=== PATIENT | female | born 1985 | race Hispanic/Latino ===

== ENCOUNTER 2017-02-08 20:41 | Emergency (ER) | payer MEDICAID, OTHER ==
[2017-02-08] MEDS ORDERED: ACETAMINOPHEN EXTRA STRENGTH 500 MG TABLET ONE (20:55)
[2017-02-08] MEDS ORDERED: OSELTAMIVIR PHOSPHATE 75 MG CAP ONE (22:14)
== END 2017-02-08 23:38 | disposition home or self-care (01) ==
LOC: EDH 20:41
DX: O99.513 Diseases of the respiratory system complicating pregnancy, third trimester (principal); O26.893 Other specified pregnancy related conditions, third trimester; J09.X2 Influenza due to identified novel influenza A virus with other respiratory manifestations; R10.9 Unspecified abdominal pain; Z3A.32 32 weeks gestation of pregnancy; Z88.8 Allergy status to other drugs, medicaments and biological substances; Z98.890 Other specified postprocedural states; Z86.711 Personal history of pulmonary embolism; Z86.718 Personal history of other venous thrombosis and embolism
CPT/HCPCS: 76805; 87804; 87880; 96360

== ENCOUNTER 2017-02-28 18:49 | Observation (INO) | payer MEDICAID, OTHER ==
[~2017-02-28] VITALS: Ht 165.1 cm; Wt 100.7 kg
[2017-02-28] MEDS ORDERED: ONDANSETRON HCL 4 MG/2 ML VIAL IVP PRN (19:30)
[2017-02-28] MEDS: LACTATED RINGERS 1000ML 1,000 ML IV SCH ×2 (19:42→19:44)
[2017-02-28 22:42] LABS: APPEARANCE,URINE Clear (CLEAR); BILIRUBIN,URINE Negative (NEGATIVE); COLOR,URINE Yellow (YELLOW); GLUCOSE, URINE (UA) Negative (NEGATIVE); KETONES,URINE >=80 mg/dL (NEGATIVE); LEUKOCYTE ESTERASE ,URINE Moderate (NEGATIVE); NITRATE,URINE Negative (NEGATIVE); OCCULT BLOOD,URINE Negative (NEGATIVE); PH,URINE 6.5 (5.0-8.0); PROTEIN,URINE Negative (NEGATIVE)
[2017-02-28 23:10] LABS: RBC,URINE None Seen /HPF (0-1)
[2017-02-28 23:11] LABS: BACTERIA,URINE Moderate /HPF (None Seen); SQUAMOUS EPITHELIAL CELL,UR Moderate /LPF (0-2)
== END 2017-03-01 00:25 | disposition home or self-care (01) ==
LOC: EDH 18:49 → LDH 19:01
DX: O21.2 Late vomiting of pregnancy (principal); O26.893 Other specified pregnancy related conditions, third trimester; R10.9 Unspecified abdominal pain; R19.7 Diarrhea, unspecified; Z3A.35 35 weeks gestation of pregnancy
CPT/HCPCS: 81001; 87046; 87177; 96361 ×2; 96374; 99285; G0378 ×5; J2405; 96360

== ENCOUNTER 2017-03-27 06:57 | Inpatient (IN) | payer MEDICAID ==
[2017-03-27] MEDS ORDERED: LACTATED RINGERS 1000ML 1,000 ML IV PRN (07:08)
[2017-03-27] MEDS ORDERED: OXYTOCIN 10 USP UNITS/ML 20 UNIT in LACTATED RINGERS 1000ML 1,000 ML IV SCH (07:15)
[2017-03-27] MEDS ORDERED: BUTORPHANOL TARTRATE 2 MG/ML IVP PRN (07:15)
[2017-03-27] MEDS ORDERED: NALOXONE HCL 0.4 MG/1 ML ML IV PRN (07:15)
[2017-03-27] MEDS ORDERED: EPHEDRINE SULFATE 50 MG/ML AMPULE IVP PRN (07:15)
[2017-03-27] MEDS ORDERED: OXYTOCIN 10 USP UNITS/ML ONE ×2 (07:45→13:45)
[2017-03-27] MEDS ORDERED: LACTATED RINGERS 1000ML 1,000 ML IV ONE ×2 (07:45→13:45)
[2017-03-27 08:15] LABS: APPEARANCE,URINE Clear (CLEAR); BILIRUBIN,URINE Negative (NEGATIVE); COLOR,URINE Yellow (YELLOW); GLUCOSE, URINE (UA) Negative (NEGATIVE); KETONES,URINE 15 mg/dL (NEGATIVE); LEUKOCYTE ESTERASE ,URINE Trace (NEGATIVE); NITRATE,URINE Negative (NEGATIVE); OCCULT BLOOD,URINE Negative (NEGATIVE); PH,URINE 6.5 (5.0-8.0); PROTEIN,URINE Trace (NEGATIVE)
[2017-03-27 08:22] LABS: HEMATOCRIT 32.2 % (36-48); MEAN CORPUSCULAR HEMOGLOBIN 28.7 pg (27.0-33.0); MEAN CORPUSCULAR HGB CONC 34.4 g/dL (32.0-36.0); MEAN CORPUSCULAR VOLUME 83.3 fL (79-99); PLATELET COUNT (AUTO) 271 K/uL (130-400); RED BLOOD CELL COUNT(AUTO) 3.87 MIL/uL (4.00-5.50); WHITE BLOOD COUNT (AUTO) 6.4 K/uL (4.8-10.8)
[2017-03-27 08:31] LABS: BACTERIA,URINE Rare /HPF (None Seen); MUCUS,URINE Few LPF (None Seen)
[2017-03-27 08:32] LABS: RBC,URINE 0-1 /HPF (0-1)
[2017-03-27] MEDS: LACTATED RINGERS 500 ML 500 ML IV PRN ×2 (10:30→12:30)
[2017-03-27] MEDS ORDERED: WITCH HAZEL 1 PAD TP PRN (13:30)
[2017-03-27] MEDS ORDERED: ACETAMINOPHEN-CODEINE 300/30MG TAB PO PRN (13:30)
[2017-03-27] MEDS ORDERED: LANOLIN 30GM OINTMENT TP PRN (13:30)
[2017-03-27] MEDS ORDERED: MEASLES/MUMPS/RUBELLA VACCINE, LIVE 0.5 ML/VIAL SQ PRN (13:30)
[2017-03-27] MEDS ORDERED: OXYTOCIN-LR 20 UNITS/1000 ML 1,000 ML IV SCH (13:30)
[2017-03-27] MEDS ORDERED: ACETAMINOPHEN 325 MG TAB PO PRN (13:30)
[2017-03-27] MEDS ORDERED: DIPH,PERTUSS(ACELL),TET VAC/PF 0.5 ML VIAL IM PRN (13:30)
[2017-03-27 16:00] VITALS: BP 99/67
[2017-03-27] MEDS: BENZOCAINE/LANOLIN/ALOE VERA 60 ML AEROSOL TP PRN (16:31)
[2017-03-27] MEDS: IBUPROFEN 800 MG TAB PO PRN ×2 (16:33→23:41)
[2017-03-27 19:53] VITALS: BP 103/75
[2017-03-27] MEDS: DOCUSATE SODIUM 100 MG CAP PO SCH (21:09)
[2017-03-27 23:40] VITALS: BP 98/58
[2017-03-28 03:35] VITALS: BP 98/64
[2017-03-28] MEDS ORDERED: FLU VACC QS2017-18 36MOS UP/PF 60 MCG/0.5 ML ML IM ONE (06:30)
[2017-03-28] MEDS: DOCUSATE SODIUM 100 MG CAP PO SCH (08:16)
[2017-03-28] MEDS: IBUPROFEN 800 MG TAB PO PRN (08:17)
[2017-03-28 08:18] LABS: HEPATITIS Bs ANTIGEN SCREEN P Negative (Negative)
[2017-03-28 08:28] VITALS: BP 97/62
[2017-03-28 08:54] LABS: HEMATOCRIT 28.7 % (36-48); MEAN CORPUSCULAR HEMOGLOBIN 28.5 pg (27.0-33.0); MEAN CORPUSCULAR HGB CONC 33.9 g/dL (32.0-36.0); PLATELET COUNT (AUTO) 245 K/uL (130-400); RED BLOOD CELL COUNT(AUTO) 3.42 MIL/uL (4.00-5.50); RED CELL DISTRIBUTION WIDTH 13.2 % (11.0-15.5); WHITE BLOOD COUNT (AUTO) 8.9 K/uL (4.8-10.8)
[2017-03-28 11:54] VITALS: BP 116/68
[2017-03-28] MEDS: BENZOCAINE/LANOLIN/ALOE VERA 60 ML AEROSOL TP PRN (13:33)
[2017-03-28] MEDS ORDERED: MO8B PO (13:44)
== END 2017-03-28 15:40 | disposition home or self-care (01) | DRG 560 ==
LOC: LDH 06:57 → WSH 16:00
PROVIDERS: ADMIT Obstetrics & Gynecology; ATTEND Obstetrics & Gynecology
PROC: 0KQM0ZZ Repair Perineum Muscle, Open Approach (ICD-10-PCS; principal; 2017-03-27)
PROC: 10E0XZZ Delivery of Products of Conception, External Approach (ICD-10-PCS; 2017-03-27)
PROC: 3E033VJ Introduction of Other Hormone into Peripheral Vein, Percutaneous Approach (ICD-10-PCS; 2017-03-27)
PROC: 3E0234Z Introduction of Serum, Toxoid and Vaccine into Muscle, Percutaneous Approach (ICD-10-PCS; 2017-03-27)
PROC: 3E0234Z Introduction of Serum, Toxoid and Vaccine into Muscle, Percutaneous Approach (ICD-10-PCS; 2017-03-27)
PROC: 3E0134Z Introduction of Serum, Toxoid and Vaccine into Subcutaneous Tissue, Percutaneous Approach (ICD-10-PCS; 2017-03-27)
PROC: 3E0R3BZ Introduction of Anesthetic Agent into Spinal Canal, Percutaneous Approach (ICD-10-PCS; 2017-03-27)
PROC: 00HU33Z Insertion of Infusion Device into Spinal Canal, Percutaneous Approach (ICD-10-PCS; 2017-03-27)
PROC: 10907ZC Drainage of Amniotic Fluid, Therapeutic from Products of Conception, Via Natural or Artificial Opening (ICD-10-PCS; 2017-03-27)
DX: O69.81X0 Labor and delivery complicated by cord around neck, without compression, not applicable or unspecified (principal); O99.344 Other mental disorders complicating childbirth; O70.1 Second degree perineal laceration during delivery; Z23 Encounter for immunization; Z37.0 Single live birth; Z3A.39 39 weeks gestation of pregnancy
CPT/HCPCS: 36415; 81001; 85027; 86592; 86850; 86900; 86901; 87340; 90707; 90715; A4314; A4351; A4606; J2590; J7120; Q2038

== ENCOUNTER 2018-11-07 02:30 | Emergency (ER) | payer MEDICAID, OTHER ==
[~2018-11-07 02:30] MED LIST: IBUP-1493 PO
[2018-11-07] MEDS ORDERED: ACETAMINOPHEN EXTRA STRENGTH 500 MG TABLET ONE (02:45)
[2018-11-07 02:57] LABS: APPEARANCE,URINE Clear (CLEAR); BILIRUBIN,URINE Negative (NEGATIVE); COLOR,URINE Yellow (YELLOW); GLUCOSE, URINE (UA) Negative (NEGATIVE); KETONES,URINE Negative (NEGATIVE); LEUKOCYTE ESTERASE ,URINE Trace (NEGATIVE); NITRATE,URINE Negative (NEGATIVE); OCCULT BLOOD,URINE Moderate (NEGATIVE); PROTEIN,URINE Negative (NEGATIVE); UROBILINOGEN,URINE 0.2 mg/dL (0.2-1.0)
[2018-11-07 02:59] LABS: HCG,QUAL RESULT NEGATIVE (NEGATIVE)
[2018-11-07 03:03] LABS: RAPID GROUP A STREP NEGATIVE (NEGATIVE)
[2018-11-07 03:09] LABS: BACTERIA,URINE None Seen /HPF (None Seen); SQUAMOUS EPITHELIAL CELL,UR Moderate /HPF (0-2); WBC,URINE 0-1 /HPF (0-1)
[2018-11-07] MEDS ORDERED: AZITHROMYCIN 250 MG TABLET PO ONE (05:19)
== END 2018-11-07 05:29 | disposition home or self-care (01) ==
LOC: EDH 02:30
DX: A09 Infectious gastroenteritis and colitis, unspecified (principal); J02.9 Acute pharyngitis, unspecified; F41.9 Anxiety disorder, unspecified; F32.9 Major depressive disorder, single episode, unspecified; Z90.49 Acquired absence of other specified parts of digestive tract; Z86.718 Personal history of other venous thrombosis and embolism
CPT/HCPCS: 81001; 81025; 87804; 87880

== ENCOUNTER 2019-11-24 15:25 | Observation (INO) | payer MEDICAID ==
[~2019-11-24] VITALS: Ht 165.1 cm; Wt 105.7 kg
[2019-11-24] MEDS ORDERED: LACTATED RINGERS 1000ML IV SCH (17:15)
[2019-11-29] MEDS ORDERED: SERT100T12 PO (16:24)
[2019-11-29] MEDS ORDERED: PREN-154 PO (16:24)
== END 2019-11-24 17:50 | disposition home or self-care (01) ==
LOC: INTOOBSV 15:25 → LDH 15:25
PROVIDERS: ADMIT Obstetrics & Gynecology; ATTEND Obstetrics & Gynecology
DX: O36.8330 Maternal care for abnormalities of the fetal heart rate or rhythm, third trimester, not applicable or unspecified (principal); Z3A.39 39 weeks gestation of pregnancy
CPT/HCPCS: 59025; 76805; 96360; G0378 ×2; J7120

== ENCOUNTER 2019-12-13 17:59 | Emergency (ER) | payer MEDICAID ==
[~2019-12-13 17:59] MED LIST changes: -IBUP-1493 PO; +PREN-154 PO; +SERT100T12 PO
[2019-12-13 18:24] LABS: BASOPHILS % (AUTO) 1.1 % (0.0-5.0); EOSINOPHILS % (AUTO) 4.4 % (0.0-8.0); HEMATOCRIT 37.6 % (36-48); LYMPHOCYTES % (AUTO) 34.7 % (21.0-51.0); MEAN CORPUSCULAR HEMOGLOBIN 26.4 pg (27.0-33.0); MEAN CORPUSCULAR HGB CONC 30.9 g/dL (32.0-36.0); MEAN CORPUSCULAR VOLUME 85.5 fL (79-99); NEUTROPHILS % (AUTO) 53.6 % (40.0-77.0); PLATELET COUNT (AUTO) 409 K/uL (130-400); RED CELL DISTRIBUTION WIDTH 13.5 % (11.0-15.5); WHITE BLOOD COUNT (AUTO) 4.5 K/uL (4.8-10.8)
[2019-12-13 18:35] LABS: POTASSIUM 4.3 mmol/L (3.5-5.1)
[2019-12-13 18:40] LABS: ALBUMIN 3.2 g/dL (3.5-5.0); BILIRUBIN,TOTAL 0.3 mg/dL (0.2-1.0); TOTAL PROTEIN, SERUM 7.1 g/dL (6.0-8.3)
[2019-12-13 18:43] LABS: INR 0.86 (0.85-1.15); PARTIAL THROMBOPLASTIN TIME 26.4 SEC (26.3-35.5); PROTHROMBIN TIME 9.3 SEC (9.6-11.6)
== END 2019-12-13 20:09 | disposition home or self-care (01) ==
LOC: EDH 17:59
DX: I80.02 Phlebitis and thrombophlebitis of superficial vessels of left lower extremity (principal); F41.9 Anxiety disorder, unspecified; F32.9 Major depressive disorder, single episode, unspecified; Z91.010 Allergy to peanuts; Z88.8 Allergy status to other drugs, medicaments and biological substances
CPT/HCPCS: 36415; 80053; 85025; 85610; 85730; 93971

== ENCOUNTER 2022-11-29 23:11 | Emergency (ER) | payer BC, MEDICAID ==
[~2022-11-29] VITALS: Ht 172.7 cm; Wt 122.5 kg
[~2022-11-29 23:11] MED LIST changes: +SERT-440 PO; -SERT100T12 PO
[2022-11-30] VITALS: BP 110/67; PULSE 80; RESP 16; O2SAT 98
[2022-11-30] MEDS ORDERED: MAG-55 PO (00:21)
[2022-11-30] MEDS ORDERED: MAG/ALUM/SIMETH 30 ML UDCUP ONE (00:25)
[2022-11-30] MEDS ORDERED: MAG/ALUM/SIMETH 30 ML UDCUP PO ONE (00:30)
== END 2022-11-30 00:58 | disposition home or self-care (01) ==
LOC: EDH 23:11
DX: T18.8XXA Foreign body in other parts of alimentary tract, initial encounter (principal); Z79.899 Other long term (current) drug therapy; Z98.890 Other specified postprocedural states; Z88.8 Allergy status to other drugs, medicaments and biological substances; Z91.010 Allergy to peanuts; X58.XXXA Exposure to other specified factors, initial encounter; Y93.89 Activity, other specified; Y92.89 Other specified places as the place of occurrence of the external cause; Y99.8 Other external cause status
CPT/HCPCS: 74018

== ENCOUNTER → 2023-09-01 | Outpatient (CLI) | payer BC ==
[~2023-09-01] MED LIST changes: +MAG-55 PO
[2023-09-01 15:41] LABS: BASOPHILS # (AUTO) 0.05 K/uL (0.00-0.20); BASOPHILS % (AUTO) 0.9 % (0.0-5.0); EOSINOPHILS # (AUTO) 0.19 K/uL (0.00-0.70); EOSINOPHILS % (AUTO) 3.3 % (0.0-8.0); HEMATOCRIT 43.8 % (36-48); IMMATURE GRANULOCYTE ABSOLUTE 0.01 K/uL (0-1); LYMPHOCYTES % (AUTO) 33.9 % (21.0-51.0); MEAN CORPUSCULAR HEMOGLOBIN 28.2 pg (27.0-33.0); MEAN CORPUSCULAR HGB CONC 31.7 g/dL (32.0-36.0); MEAN CORPUSCULAR VOLUME 88.8 fL (79-99); MONOCYTES # (AUTO) 0.3 K/uL (0.1-1.0); MONOCYTES % (AUTO) 5.5 % (3.0-13.0); NEUTROPHILS # (AUTO) 3.3 K/uL (1.8-7.7); NEUTROPHILS % (AUTO) 56.2 % (40.0-77.0); PLATELET COUNT (AUTO) 291 K/uL (130-400); RED BLOOD CELL COUNT(AUTO) 4.93 MIL/uL (4.00-5.50); RED CELL DISTRIBUTION WIDTH 12.7 % (11.0-15.5); WHITE BLOOD COUNT (AUTO) 5.8 K/uL (4.8-10.8)
[2023-09-01 15:51] LABS: HEMOGLOBIN A1C 5.4 % (4.0-6.0)
[2023-09-01 16:29] LABS: BILIRUBIN,TOTAL 0.8 mg/dL (0.2-1.0); CREATININE 0.8 mg/dL (0.5-1.0); MAGNESIUM 1.8 mg/dL (1.80-2.40); T4 (THYROXINE) 6.8 ug/dL (4.7-13.3); THYROID STIMULATING HORMONE 3.22 uIU/mL (0.36-3.74); TOTAL PROTEIN, SERUM 7.8 g/dL (6.0-8.3)
== END | disposition home or self-care (01) ==
LOC: LAB 13:00
PROVIDERS: ATTEND Surgery
DX: Z01.818 Encounter for other preprocedural examination (principal); M19.91 Primary osteoarthritis, unspecified site; E66.01 Morbid (severe) obesity due to excess calories; G47.33 Obstructive sleep apnea (adult) (pediatric)
CPT/HCPCS: 36415; 71045; 80053; 80061; 82306; 82607; 82746; 83036; 83540; 83735; 84207; 84425; 84436; 84443; 84446; 84481; 84590; 84630; 85025; 93005

== ENCOUNTER → 2023-09-01 | Outpatient (CLI) | payer OTHER ==
[~2023-09-01] VITALS: Ht 10.2 cm; Wt 133.4 kg
== END | disposition home or self-care (01) ==
LOC: DTH 13:20
PROVIDERS: ATTEND Surgery
DX: E66.01 Morbid (severe) obesity due to excess calories (principal); M19.91 Primary osteoarthritis, unspecified site; G47.33 Obstructive sleep apnea (adult) (pediatric); Z68.42 Body mass index [BMI] 45.0-49.9, adult
CPT/HCPCS: 97802

== ENCOUNTER 2023-09-14 07:22 | Day surgery (SDC) | payer BC ==
[2023-09-14] VITALS (11 sets, daily range): BP systolic 111–144; BP diastolic 66–91; PULSE 60–82; RESP 15–18
[~2023-09-14] VITALS: Ht 165.1 cm; Wt 131.5 kg
== END 2023-09-14 12:15 ==
LOC: DAH 07:22
PROVIDERS: ATTEND Surgery
DX: K21.9 Gastro-esophageal reflux disease without esophagitis (principal); F41.9 Anxiety disorder, unspecified; F32.A Depression, unspecified; Z88.8 Allergy status to other drugs, medicaments and biological substances
CPT/HCPCS: 43235; 81025; A4620; A4215 ×2; A4223; A4222; A4221; A4663; A4606

== ENCOUNTER → 2023-09-23 | Outpatient (CLI) | payer OTHER | END | disposition home or self-care (01) | LOC: DTH 12:06 | PROVIDERS: ATTEND Surgery | DX: E66.01 Morbid (severe) obesity due to excess calories (principal); M19.91 Primary osteoarthritis, unspecified site; Z68.42 Body mass index [BMI] 45.0-49.9, adult; Z71.3 Dietary counseling and surveillance | CPT/HCPCS: 97803 ==

== ENCOUNTER → 2023-09-30 | Outpatient (CLI) | payer OTHER | END | disposition home or self-care (01) | LOC: RAH 13:58 | PROVIDERS: ATTEND Internal Medicine Cardiovascular Disease | DX: Z13.6 Encounter for screening for cardiovascular disorders (principal) | CPT/HCPCS: 75571 ==

== ENCOUNTER → 2023-10-27 | Outpatient (CLI) | payer BC ==
[2023-10-27 22:36] VITALS: PULSE 60; RESP 20
[2023-10-27 23:09] VITALS: PULSE 70; RESP 22
[2023-10-27 23:31] VITALS: PULSE 70; RESP 20
[2023-10-28] VITALS (12 sets, daily range): PULSE 61–74; RESP 16–20
== END | disposition home or self-care (01) ==
LOC: SLP 20:46
PROVIDERS: ATTEND Internal Medicine Pulmonary Disease
DX: G47.10 Hypersomnia, unspecified (principal)
CPT/HCPCS: 95810

== ENCOUNTER 2023-12-17 09:00 | Inpatient (IN) | payer BC ==
[~2023-12-17] VITALS: Ht 190.5 cm; Wt 129.7 kg
[~2023-12-17 09:00] MED LIST changes: -MAG-55 PO; -PREN-154 PO
[2023-12-17 11:27] LABS: BASOPHILS # (AUTO) 0.05 K/uL (0.00-0.20); BASOPHILS % (AUTO) 0.8 % (0.0-5.0); EOSINOPHILS # (AUTO) 0.25 K/uL (0.00-0.70); EOSINOPHILS % (AUTO) 3.8 % (0.0-8.0); HEMATOCRIT 40.5 % (36-48); IMMATURE GRANULOCYTE ABSOLUTE 0.02 K/uL (0-1); LYMPHOCYTES # (AUTO) 1.7 K/uL (1.0-4.8); LYMPHOCYTES % (AUTO) 26.6 % (21.0-51.0); MEAN CORPUSCULAR HEMOGLOBIN 28.8 pg (27.0-33.0); MEAN CORPUSCULAR HGB CONC 32.6 g/dL (32.0-36.0); MEAN CORPUSCULAR VOLUME 88.4 fL (79-99); MONOCYTES # (AUTO) 0.4 K/uL (0.1-1.0); MONOCYTES % (AUTO) 6.3 % (3.0-13.0); NEUTROPHILS # (AUTO) 4.1 K/uL (1.8-7.7); NEUTROPHILS % (AUTO) 62.2 % (40.0-77.0); PLATELET COUNT (AUTO) 297 K/uL (130-400); RED BLOOD CELL COUNT(AUTO) 4.58 MIL/uL (4.00-5.50); RED CELL DISTRIBUTION WIDTH 12.3 % (11.0-15.5); WHITE BLOOD COUNT (AUTO) 6.5 K/uL (4.8-10.8)
[2023-12-17 11:37] LABS: CREATININE 0.9 mg/dL (0.5-1.0); POTASSIUM 3.8 mmol/L (3.5-5.1)
[2023-12-17 12:10] VITALS: BP 112/71; PULSE 79; RESP 17; TEMP 98.1
[2023-12-17] MEDS ORDERED: mvi PO (12:12)
[2023-12-21] VITALS (32 sets, daily range): BP systolic 101–155; BP diastolic 52–86; PULSE 63–98; RESP 14–21; TEMP 97.1–98.8
[2023-12-21] MEDS ORDERED: LIDOCAINE PF 100MG/5ML (2%) SYRINGE 5ML ONE (07:30)
[2023-12-21] MEDS ORDERED: rocuRONium bROMide 10MG/1ML 5ML VL ONE ×2 (07:31→08:47)
[2023-12-21] MEDS ORDERED: MIDAZOLAM HCL 1 MG/ML 2ML VIAL ONE (07:31)
[2023-12-21] MEDS ORDERED: proPOFol 10 MG/ML 20ML VIAL IV ONE (07:31)
[2023-12-21] MEDS ORDERED: ondanSETRON 4MG INJ ONE (07:32)
[2023-12-21] MEDS ORDERED: dexaMETHasone SOD PHOSPHATE 4 MG/ML 1ML VIAL ONE (07:32)
[2023-12-21] MEDS ORDERED: FENTanyl CITRate PF 50 MCG/1 ML 5ML AMP IV ONE (07:32)
[2023-12-21] MEDS ORDERED: ketaMINE 50MG/ML SYRINGE 50 MG/ML DISP.SYRIN ONE (08:29)
[2023-12-21] MEDS: ceFAZolin SODIUM 3 GM VIAL IVPB ONE (08:30)
[2023-12-21] MEDS: ceFAZolin SODIUM 1 GM VIAL ONE (08:37)
[2023-12-21] MEDS: ceFAZolin SODIUM 2 GM VIAL ONE (08:37)
[2023-12-21] MEDS: LACTATED RINGERS 1000ML 1,000 ML IV ONE (08:38)
[2023-12-21] MEDS ORDERED: ketOROlac 30MG VIAL (30MG/ML) ONE (08:46)
[2023-12-21] MEDS ORDERED: BUPIvacaine/PF 0.25% 30ML VIAL IJ ONE (08:46)
[2023-12-21] MEDS ORDERED: BUPIvacaine HCL/EPINEPHrine/PF 0.25% 10ML VIAL IJ ONE (08:46)
[2023-12-21] MEDS ORDERED: ePHEDrine SULFate 50 MG/ML AMPULE ONE (08:55)
[2023-12-21] MEDS: FAMOTIDINE 20MG VIAL IV ONE (09:04)
[2023-12-21] MEDS: acetaMINOPHEN 100 ML ONE (09:04)
[2023-12-21] MEDS ORDERED: GLYCOPYRROLATE 0.2 MG/ML 5 ML VIAL ONE (10:35)
[2023-12-21] MEDS ORDERED: NEOSTIGMINE METHYLSULFATE 1MG/ML IV ONE (10:35)
--- NOTE | 2023-12-21 11:03 | OP ---
Operative Note: DATE OF PROCEDURE: 12/21/23 SURGEON: RADHA DO MD PHARMACEUTICAL COMPOUNDING SUPERVISOR: [] ANESTHESIA: [] General ANESTHESIOLOGIST/OFFICE MACHINE SERVICER APPRENTICE: [] PREOPERATIVE DIAGNOSIS: [] Morbid obesity POSTOPERATIVE DIAGNOSIS: [] The same SYNOPSIS: [] PROCEDURE: [] Laparoscopic gastric bypass ESTIMATED BLOOD LOSS: [] 50 cc INDICATIONS: [] DESCRIPTION OF PROCEDURE: []With the patient prepped and draped in usual fashion we placed a left upper quadrant Veress needle and insufflated the abdomen. We did a supraumbilical incision and a 12 mm trocar was inserted. Under direct vision I remove the needle and I placed a 12 mm trocar in the left side and the 5 mm trocar. I then placed another 12 in the right side and two 5 mm trocars. I placed a liver retractor and then transected the stomach after removing the orogastric tube with purple staplers with Joanna-Strips. After transection of the stomach and adequate hemostasis I then identified the ligament of Treitz. I transected ligament of Treitz 60 cm at distal with a white stapler. I did a jejunojejunostomy 100 cm distal with a white stapler [id number]. The ent erotomy was closed with a white stapler without obstructing the lumen. I placed an antiobstruction stitch with a 3-0 V lock. The omentum was divided and then I dilated the left trocar site placed to sutures to the fascia and then placed an anvil of the EEA 25. The pouch was opened and the anvil was placed in the desired position with a needle attached to it. I closed the gastrotomy with multiple applications of 60 mm staple. The needle was removed and then we placed a shaft of the EEA in place through the free end of the jejunum and a gastrojejunostomy constructed. Two complete donuts obtained. I remove the excess of the small bowel after transected with a white stapler. A suture over the anastomosis with a three 0 V lock was placed. I then clamped the Merlin-en-Y and went to the head of the patient and endoscopy was done. I passed the endoscope easily to the anastomosis insufflated submerged under water and no bubbles were seen. The endoscope was removed after suctioned air and fluid. I then returned to this bedside with patient I suctioned all the fluid and I placed a abdominal tap block under direct vision with 40 cc of 0.25% of Marcaine in his side. I removed all the trochars under direct vision. I closed the fascia of the previously dilated trocar site with the sutures placed and all incisions were closed with 4-0 Monocryl and and Steri-Strips. Patient tolerated procedure without complication RADHA DO MD Dec 21, 2023 11:03
[2023-12-21] MEDS: MEPERIDINE-PF 25 MG/ML SYG ONE ×2 (11:30→11:42)
[2023-12-21] MEDS ORDERED: ketOROlac 30MG VIAL (30MG/ML) IM PRN (11:30)
[2023-12-21] MEDS ORDERED: morPHINE 2 MG SYG IVP PRN (11:30)
[2023-12-21] MEDS: ceFAZolin SODIUM 2 GM VIAL IVPB SCH ×2 (13:42→21:23)
[2023-12-21] MEDS: INSULIN humuLIN R 100 UNIT/ML 3ML SQ SCH (13:42)
[2023-12-21] MEDS: ondanSETRON 4MG INJ IVP PRN (14:01)
[2023-12-21] MEDS: D5LR-20 MEQ KCL 1000 ML 1,000 ML IV SCH (14:38)
[2023-12-21] MEDS: morPHINE 4 MG SYG IVP PRN (16:05)
[2023-12-22 04:11] VITALS: BP 106/79; PULSE 79; RESP 18; TEMP 98.5
[2023-12-22] MEDS: PROCHLORPERAZINE 10MG/2ML INJ IV PRN (04:11)
[2023-12-22 07:45] VITALS: O2SAT 93
[2023-12-22 08:00] VITALS: BP 111/64; PULSE 67; RESP 19; TEMP 98.5
[2023-12-22] MEDS: ENOXAPARIN SODIUM 30 MG/0.3 ML SQ ONE (10:17)
--- NOTE | 2023-12-22 10:32 | PN ---
This is a 38-year-old female postop for a gastric bypass by Dr. Hodges Interval history: This 38-year-old female seen in her room resting Patient with expected discomfort at incision sites status post surgery Patient tolerating bariatric phase one diet Labs pending Vitals stable Patient voicing she is not ready for discharge today to for observation Physical exam General: Awake alert and oriented Heart: Regular rate and rhythm} Lungs: [Clear to auscultation no distress Abdomen: Incisional discomfort Assessment : This is a 38-year-old female status post gastric bypass Plan: Patient to remain overnight for observation Diet to remain on bariatric phase one Patient to be started on Lovenox due to history of DVT Patient encouraged to work with physical therapy and ambulate Likely discharge tomorrow Dr. Hodges to be updated on patient's status and surgical team to follow patient closely Vitals/Labs Vital Signs Date Time Temp Pulse Resp B/P (MAP) Pulse Ox O2 Delivery O2 Flow Rate FiO2 12/22/23 08:00 98.4 67 19 111/64 93 Room Air 12/22/23 04:11 21 12/21/23 14:55 3.0 Medications Current Medications Cefazolin Sodium 1 gm STK-MED ONCE .ROUTE; Start 12/21/23 at 07:14; Stop 1 02/19/23 at 07:16; Status DC Cefazolin Sodium 2 gm STK-MED ONCE .ROUTE; Start 12/21/23 at 07:15; Stop 12/21/23 at 07:16; Status DC Lactated Ringer's 1,000 ml @ As Directed STK-MED ONCE IV Last administered on 12/21/23at 08:38; Start 12/21/23 at 07:15; Stop 12/21/23 at 07:16; Status DC Lidocaine HCl 100 mg STK-MED ONCE .ROUTE; Start 12/21/23 at 07:30; Stop 12/21/23 at 07:30; Status DC Midazolam HCl 2 mg STK-MED ONCE .ROUTE; Start 12/21/23 at 07:31; Stop 12/21/23 at 07:31; Status DC Propofol 200 mg STK-MED ONCE IV; Start 12/21/23 at 07:31; Stop 12/21/23 at 07:31; Status DC Rocuronium [place] 50 mg STK-MED ONCE .ROUTE; Start 12/21/23 at 07:31; Stop 12/21/23 at 07:31; Status DC Fentanyl Citrate 250 mcg STK-MED ONCE IV; Start 12/21/23 at 07:32; Stop 12/21/23 at 07:32; Status DC Dexamethasone Sodium Phosphate 4 mg STK-MED ONCE .ROUTE; Start 12/21/23 at 07:32; Stop 12/21/23 at 07:32; Status DC Ondansetron HCl 4 mg STK-MED ONCE .ROUTE; Start 12/21/23 at 07:32; Stop 12/21/23 at 07:33; Status DC Ketamine HCl 50 mg STK-MED ONCE .ROUTE; Start 12/21/23 at 08:29; Stop 12/21/23 at 08:29; Status DC Bupivacaine HCl/ Epinephrine Bitart 10 ml STK-MED ONCE IJ; Start 12/21/23 at 08:46; Stop 12/21/23 at 08:46; Status DC Ketorolac Tromethamine 30 mg STK-MED ONCE .ROUTE; Start 12/21/23 at 08:46; Stop 12/21/23 at 08:46; Status DC Bupivacaine HCl 2.5 mg STK-MED ONCE IJ; Start 12/21/23 at 08:46; Stop 12/21/23 at 08:46; Status DC Rocuronium [place] 50 mg STK-MED ONCE .ROUTE; Start 12/21/23 at 08:47; Stop 12/21/23 at 08:47; Status DC Ephedrine Sulfate 50 mg STK-MED ONCE .ROUTE; Start 12/21/23 at 08:55; Stop 12/21/23 at 08:55; Status DC Acetaminophen 100 ml @ As Directed STK-MED ONCE .ROUTE; Start 12/21/23 at 09:04; Stop 12/21/23 at 09:04; Status DC Famotidine 20 mg STK-MED ONCE IV; Start 12/21/23 at 09:04; Stop 12/21/23 at 09:04; Status DC Cefazolin Sodium 3 gm STK-MED ONCE IVPB Last administered on 12/21/23at 08:30; Start 12/21/23 at 08:30; Stop 12/21/23 at 09:32; Status DC Bupivacaine HCl 150 mg STK-MED ONCE IJ Last administered on 12/21/23at 08:53; Start 12/21/23 at 08:53; Stop 12/21/23 at 09:32; Status DC Bupivacaine HCl/ Epinephrine Bitart 10 ml STK-MED ONCE IJ Last administered on 12/21/23at 08:53; Start 12/21/23 at 08:53; Stop 12/21/23 at 09:32; Status DC Glycopyrrolate 1 mg STK-MED ONCE .ROUTE; Start 12/21/23 at 10:35; Stop 12/21/23 at 10:35; Status DC Neostigmine Methylsulfate 10 mg STK-MED ONCE IV; Start 12/21/23 at 10:35; Stop 12/21/23 at 10:35; Status DC Insulin Human Regular Regular Insulin to sc... ACHS SQ; Start 12/21/23 at 11:30; Stop 01/20/24 at 11:29 Potassium Cl/ Dextrose/Lact Ringer's 1,000 ml @ 150 mls/hr Q6H40M IV Last administered on 12/22/23at 04:24; Start 12/21/23 at 11:30; Stop 01/20/24 at 11:29 Morphine Sulfate 2 mg Q4H PRN IVP; Start 12/21/23 at 11:30; Stop 12/28/23 at 11:29 Morphine Sulfate 4 mg Q4H PRN IVP Last administered on 12/22/23at 10:21; Start 12/21/23 at 11:30; Stop 12/28/23 at 11:29 Ondansetron HCl 4 mg Q6H PRN IVP Last administered on 12/21/23at 14:01; Start 12/21/23 at 11:30; Stop 12/21/23 at 14:01; Status DC Prochlorperazine Edisylate 10 mg Q4H PRN IV Last administered on 12/22/23at 10:17; Start 12/21/23 at 11:30; Stop 01/20/24 at 11:29 Cefazolin Sodium 2 gm Q8H IVPB Last administered on 12/21/23at 13:42; Start 12/21/23 at 11:30; Stop 12/21/23 at 17:42; Status DC Ketorolac Tromethamine 30 mg Q6H PRN IM; Start 12/21/23 at 11:30; Stop 12/21/23 at 11:16; Status DC Meperidine HCl 25 mg STK-MED ONCE .ROUTE Last administered on 12/21/23at 11:30; Start 12/21/23 at 11:28; Stop 12/21/23 at 11:28; Status DC Meperidine HCl 25 mg STK-MED ONCE .ROUTE Last administered on 12/21/23at 11:42; Start 12/21/23 at 11:39; Stop 12/21/23 at 11:40; Status DC Cefazolin Sodium 2 gm Q8H IVPB Last administered on 12/22/23at 04:27; Start 12/21/23 at 21:00; Stop 12/22/23 at 05:01; Status DC Enoxaparin Sodium 30 mg DAILY SQ; Start 12/23/23 at 09:00; Stop 01/22/24 at 08:59 Enoxaparin Sodium 30 mg ONCE ONCE SQ Last administered on 12/22/23at 10:17; Start 12/22/23 at 10:00; Stop 12/22/23 at 10:01; Status DC AIXA KOCH Jr. Dec 22, 2023 10:32
[2023-12-22 11:01] LABS: BASOPHILS # (AUTO) 0.01 K/uL (0.00-0.20); BASOPHILS % (AUTO) 0.2 % (0.0-5.0); EOSINOPHILS # (AUTO) 0.02 K/uL (0.00-0.70); EOSINOPHILS % (AUTO) 0.3 % (0.0-8.0); HEMATOCRIT 35.2 % (36-48); IMMATURE GRANULOCYTE ABSOLUTE 0.01 K/uL (0-1); LYMPHOCYTES # (AUTO) 0.9 K/uL (1.0-4.8); MEAN CORPUSCULAR HEMOGLOBIN 28.3 pg (27.0-33.0); MEAN CORPUSCULAR HGB CONC 33.2 g/dL (32.0-36.0); MEAN CORPUSCULAR VOLUME 85.2 fL (79-99); MONOCYTES # (AUTO) 0.6 K/uL (0.1-1.0); NEUTROPHILS # (AUTO) 4.6 K/uL (1.8-7.7); NEUTROPHILS % (AUTO) 75.3 % (40.0-77.0); PLATELET COUNT (AUTO) 256 K/uL (130-400); RED BLOOD CELL COUNT(AUTO) 4.13 MIL/uL (4.00-5.50); RED CELL DISTRIBUTION WIDTH 12.5 % (11.0-15.5); WHITE BLOOD COUNT (AUTO) 6.1 K/uL (4.8-10.8)
[2023-12-22 11:13] LABS: ALBUMIN 3.3 g/dL (3.5-5.0); BILIRUBIN,TOTAL 0.7 mg/dL (0.2-1.0); CREATININE 0.8 mg/dL (0.5-1.0); POTASSIUM 3.8 mmol/L (3.5-5.1); TOTAL PROTEIN, SERUM 6.4 g/dL (6.0-8.3)
[2023-12-22 11:57] VITALS: BP 93/51; PULSE 87; RESP 18; TEMP 98.3
[2023-12-22 16:00] VITALS: BP 127/61; PULSE 84; RESP 19; TEMP 98.6
[2023-12-22] MEDS: traMADol HCL 50 MG TABLET PO ONE (18:54)
[2023-12-23] MEDS ORDERED: ENOXAPARIN SODIUM 30 MG/0.3 ML SQ SCH (09:00)
== END 2023-12-22 20:25 | disposition home or self-care (01) | DRG 621 ==
LOC: DAHIP 12-21 07:00 → 4BH 12-21 17:30
PROVIDERS: ADMIT Surgery; ATTEND Surgery
PROC: 0D164ZA Bypass Stomach to Jejunum, Percutaneous Endoscopic Approach (ICD-10-PCS; principal; 2023-12-21 08:12)
DX: E66.01 Morbid (severe) obesity due to excess calories (principal); E78.5 Hyperlipidemia, unspecified; K21.9 Gastro-esophageal reflux disease without esophagitis; Z86.718 Personal history of other venous thrombosis and embolism; Z86.711 Personal history of pulmonary embolism; Z68.35 Body mass index [BMI] 35.0-35.9, adult
CPT/HCPCS: 36415; 43235; 80048; 80053; 81025; 82948; 84703; 85025; G0378; J0690; J0780; J1100; J1650; J1885; J2003; J2175; J2250; J2270; J2405; J2704; J2710; J3010; J3490; J7030; J7120; A4213; A4215; A4216; A4221; A4222; A4223; A4600; A4649; A4663; A4930; A6260; C1713; C1769; J0665

== ENCOUNTER 2023-12-23 22:48 | Emergency (ER) | payer BC ==
[~2023-12-23] VITALS: Ht 165.1 cm; Wt 127.9 kg
--- NOTE | 2023-12-23 23:07 | ERN ---
ED Note History of Present Illness Stated Complaint: C/O BLOOD IN STOOL W/ ABD PAIN Chief Complaint: Bloody Stool Time Seen by MD: 23:02 Dictation: This is a 38-year-old obese female presented to the ER with history of bloody stool. She had a picture that she showed me of her toilet with a bloody water in it She had a gastric bypass surgery a few days ago by Dr. Hodges which was uneventful and she was eventually discharged yesterday on antiemetics pain medications and anticoagulation. She stated that she was ambulating in the 1st bowel movement that she had was bloody and she got concerned and came into the ER for further evaluation she does not have any history of hemorrhoids or any previous history of GI bleed. She has a minimal pain and had episode of nausea. No hematemesis Temperature 99.5 pulse 94 respirations 20 blood pressure 115 over 89 with a pulse oximetry of 95%. Her chronic health issues include extremely morbid obesity with a BMI of 46.9 and obstructive sleep apnea syndrome Allergies: Coded Allergies: cefixime (Unverified Allergy, Unknown, 02/28/17) peanut (Unverified Allergy, Unknown, 02/28/17) Home Meds Discontinued Reported Medications [mvi] No Conflict Check, 1 TAB PO HS 12/17/23 Sertraline HCl (Sertraline HCl) 100 Mg Tablet, 100 MG PO HS, TAB 11/29/19 Vits #93/Iron Fum/FA ( Formula Tablet) 1 Each Tablet, 1 EACH PO DAILY, TAB 11/29/19 Discontinued Scripts Mag Hydrox/Al Hydrox/Simeth (Maalox Maximum Strength Susp) 400 Mg-400 Mg-40 Mg/5 Ml Oral.susp, 20 ML PO QID, #250 ML Prov:SUNDAR ROBERTS MD 11/30/22 Past Medical History Past Medical History: Other Additional Past Medical Hx: HX OF SLEEP APNEA Surgical History: Cholecystectomy, Other Surgical History Other: GASTRIC BYPASS Family History: Negative Social History: Negative, Lives with family LMP: Nov 27, 2023 RN Note Reviewed/Agreed w/PFSH: Yes Review of System Dictation Constitutional: Negative for fever,chills, and weight loss Eyes: Negative for injury, pain,redness, and discharge ENT: Negative for injury,pain or swelling Cardiovascular: Negative for chest pain, palpitations, and edema Respiratory: Negative for shortness of breath, cough, and wheezing, Abdomen/GI: Negative for abdominal pain, nausea, vomiting, diarrhea, and constipation. As described in the history of present illness Back: Negative for injury and pain : Negative for injury, bleeding and discharge MS/Extremity: Negative for injury and deformity Skin: Negative for rash, and discoloration Neuro: Negative for headache, weakness, numbness, tingling, and seizure Psych: Negative for suicide ideation, homicidal ideation, and hallucinations Initial Vital Sign VS Vital Signs Date Time Temp Pulse Resp B/P (MAP) Pulse Ox O2 Delivery O2 Flow Rate FiO2 12/23/23 22:50 99.5 94 20 115/89 95 Room Air 12/23/23 23:18 0 21 Physical Exam Dictation General: awake, alert, NAD morbidly obese female Head/Face: Normocephalic, atraumatic Eyes: PERRL, EOMI, vision at baseline ENT: oral cavity clear, TMs clear, no signs of infection Neck: Trachea midline, supple, no nuchal rigidity Cardiovascular: RRR, normal S1/S2, No MRGs, no JVD Respiratory: CTAB, no respiratory distress, No rales or wheezes Abdomen: Soft, non-tender, non-distended, normal bowel sounds, no guarding or rebound. Abdominal binder in place. Dressings from her recent surgery noted Skin: Warm, dry, normal turgor, no rash MS/Extremity: Pulses equal, no cyanosis, neurovascular intact, FROM Neuro: COAx4, GCS 15, strength 5/5, CN 2-12 intact, normal cerebellar exam, normal gait, Psych: Normal behavior, mood, and affect normal Extremities-trace edema without any palpable cords, Homans sign is negative Rectal-deferred as she was uncomfortable Results (Laboratory/Radiology) Laboratory/Radiology Laboratory Tests Test 12/23/23 23:18 12/24/23 00:46 White Blood Count 6.4 K/uL (4.8-10.8) Red Blood Count 4.08 MIL/uL (4.00-5.50) Hemoglobin 11.6 g/dL (12.0-16.0) L Hematocrit 35.9 % (36-48) L Mean Corpuscular Volume 88.0 fL (79-99) Mean Corpuscular Hemoglobin 28.4 pg (27.0-33.0) Mean Corpuscular Hemoglobin Concent 32.3 g/dL (32.0-36.0) Red Cell Distribution Width 12.5 % (11.0-15.5) Platelet Count 250 K/uL (130-400) Mean Platelet Volume 10.3 fL (7.5-10.5) Immature Granulocyte % (Auto) 0.3 % (0-1) Neutrophils (%) (Auto) 63.0 % (40.0-77.0) Lymphocytes (%) (Auto) 23.6 % (21.0-51.0) Monocytes (%) (Auto) 8.2 % (3.0-13.0) Eosinophils (%) (Auto) 4.0 % (0.0-8.0) Basophils (%) (Auto) 0.9 % (0.0-5.0) Neutrophils # (Auto) 4.0 K/uL (1.8-7.7) Lymphocytes # (Auto) 1.5 K/uL (1.0-4.8) Monocytes # (Auto) 0.5 K/uL (0.1-1.0) Eosinophils # (Auto) 0.26 K/uL (0.00-0.70) Basophils # (Auto) 0.06 K/uL (0.00-0.20) Absolute Immature Granulocyte (auto 0.02 K/uL (0-1) Nucleated Red Blood Cells 0.0 % (0.0-0.19) Prothrombin Time 10.6 SEC (9.6-11.6) Prothromb Time International Ratio 0.98 (0.85-1.15) Activated Partial Thromboplast Time 29.1 SEC (26.3-35.5) Sodium Level 142 mmol/L (136-145) Potassium Level 3.9 mmol/L (3.5-5.1) Chloride Level 104 mmol/L (101-111) Carbon Dioxide Level 30 mmol/L (21-32) Blood Urea Nitrogen 9 mg/dL (7-18) Creatinine 0.7 mg/dL (0.5-1.0) Glomerular Filtration Rate Calc 115 mL/min (>90) Random Glucose 86 mg/dL (70-105) Total Calcium 8.9 mg/dL (8.5-10.1) Lipase 46 U/L (16-77) Stool Occult Blood POSITIVE (NEGATIVE) H Labs Reviewed?: Yes ED Course ED Course Orders Procedure Category Date Status Time Vital Signs Per CPOE 12/23/23 Transmitted Routine 22:56 Saline Lock Iv CPOE 12/23/23 Transmitted 22:56 Cbc With Differential LAB 12/23/23 Complete 22:56 Lipase LAB 12/23/23 Complete 22:56 Urinalysis Profile LAB 12/23/23 In Process 22:56 Basic Metabolic Panel LAB 12/23/23 Complete 22:56 Vital Signs Per CPOE 12/23/23 Transmitted Routine 22:58 Cardiac Monitoring CPOE 12/23/23 Transmitted 22:58 Pulse Ox(Continuous) RT 12/23/23 Transmitted 22:58 Saline Lock Iv CPOE 12/23/23 Transmitted 22:58 Partial LAB 12/23/23 Complete Thromboplastin Time 22:58 Prothrombin Time With LAB 12/23/23 Complete INR 22:58 Type And Screen BBK 12/23/23 Complete 22:58 Ondansetron 4mg Inj PHA 12/24/23 Complete (Zofran 4mg Inj) 00:30 Ondansetron 4mg Inj PHA 12/24/23 Complete (Zofran 4mg Inj) 00:30 Hydromorphone 1 Mg PHA 12/24/23 Complete Inj (Dilaudid 1mg Inj 00:30 Occult Blood Stool LAB 12/24/23 Complete Single Only 00:11 Ondansetron 4mg Inj PHA 12/24/23 Complete (Zofran 4mg Inj) 00:30 Current Medications Medications (Trade) Dose Ordered Sig/Armen Route PRN Reason Start Time Stop Time Status Last Admin Dose Admin Hydromorphone HCl (DiLAUDid 1MG INJ) 1 mg ONCE ONCE IVP 12/24/23 00:30 12/24/23 00:31 DC 12/24/23 00:28 Ondansetron HCl (zoFRAN 4MG INJ) 4 mg ONCE ONCE IVP 12/24/23 00:30 12/24/23 00:17 DC 12/24/23 00:18 Ondansetron HCl (zoFRAN 4MG INJ) 4 mg ONCE ONCE IVP 12/24/23 00:30 12/24/23 00:17 DC Ondansetron HCl (zoFRAN 4MG INJ) 4 mg ONCE ONCE IVP 12/24/23 00:30 12/24/23 00:31 DC Vital Signs Date Time Temp Pulse Resp B/P (MAP) Pulse Ox O2 Delivery O2 Flow Rate FiO2 12/24/23 01:38 98.8 86 18 130/75 97 Room Air* 0 21 12/24/23 00:53 100.2 94 20 131/77 94 Room Air* 0 21 12/23/23 23:18 99.9 102 24 116/65 98 Room Air* 0 21 12/23/23 22:50 99.5 94 20 115/89 95 Room Air We will perform diagnostic labs, advanced imaging and administer medications according to the patient's complaint. Once the results are available, will review and personally interpreted the labs to rule out any acute life- threatening emergency the trach require immediate intervention and treatment. I will then re-evaluate the patient after treatment and diagnostic exams have return to determine whether the patient requires any further testing, can safely be discharged home or need further admission to hospital for additional treatment and evaluation. Labs reviewed CBC BNP 7 all with a normal limits there is no drop in the hemoglobin from pre and postop. Called Dr. Hodges and discuss with him about bleeding per rectum with completely normal vital signs and labs. He felt comfortable stating that this could be some residual from the gastric bypass surgery and that she should be cleared to go home and he will give her a call tomorrow morning and likely see her in his office. I asked her not to take any anticoagulation until she sees him tomorrow. Patient and spouse felt very comfortable to follow up with the bariatric surgeon in the morning She feels significantly better since she came in and feels relieved that she wants to be discharged to home Medical Decision Making MDM MDM: Differential diagnosis: Postop bleeding without any hemodynamic instability, patient on anticoagulation postoperatively, hemorrhoids Rationale: Tests considered and ordered secondary to shared decision making include: Previous outside records reviewed: Old ER visits. Risk of complication and/or morbidity or mortality of patient management: None Medications-Per medication reconciliation Need for hospitalization: Patient does not meet criteria for hospitalization. Need for emergency major/minor surgery: No There are no social concerns with this patient. Prescription drug management Prescriptions will include symptomatic care Patient's prior external medical records from other ER visits were reviewed by me as indicated. Prior testing and results from previous visits were reviewed. Prior tests were taken into account with medical decision making and resource utilization, independent historian/historians were used to obtain complete medical history. I independently interpreted the test that were performed, results were reviewed by me and considered findings on radiology if ordered. Medical management and examination interpretation discussions were had by me with other qualified healthcare professionals as indicated for the patient's care. Problem List Problem List: (1) Post-op bleeding (2) Complications of gastric bypass surgery (3) Rectal bleeding DX & DISP Disposition: Discharge Departure Impression: Primary Impression: Post-op bleeding Additional Impressions: Rectal bleeding, Complications of gastric bypass surgery Condition: Stable Scripts No Active Prescriptions or Reported Meds Additional Instructions: Patient and the caregiver have been informed of all the diagnostic tests and the imaging conducted during the today's visit to the emergency room and has verbalized understanding of the results I have personally reviewed and interpreted all diagnostic exams performed here in the ER today as well as the vital signs documented by the nursing staff. The patient is now being discharged to home and should follow up with the primary care physician or the specialist as directed by the ER staff. Follow-up with primary care provider in 1 to 2 days. Take medications as directed here in the emergency room. Okay to continue home medications unless otherwise discussed during your visit in the emergency room today. Return to your nearest emergency room if symptoms worsen or if there is no improvement. Call 911 if you need immediate assistance. Take Tylenol or Motrin [id number] as needed and if no contraindications are present. Increase oral hydration. A wound culture or urine culture was ordered here in the emergency room department please follow-up with primary care provider and advise them to get repeat ports from our facility. If you had any Johan wrap/splints that were applied here, please do not remove them until you see your primary care or specialty. Referrals: SAUNDRA ABAD (PCP) RADHA HODGES MD [facility],[place]IL[place] Chavez MD Dec 23, 2023 23:07
[2023-12-23 23:23] LABS: BASOPHILS # (AUTO) 0.06 K/uL (0.00-0.20); BASOPHILS % (AUTO) 0.9 % (0.0-5.0); EOSINOPHILS # (AUTO) 0.26 K/uL (0.00-0.70); HEMATOCRIT 35.9 % (36-48); IMMATURE GRANULOCYTE ABSOLUTE 0.02 K/uL (0-1); LYMPHOCYTES # (AUTO) 1.5 K/uL (1.0-4.8); LYMPHOCYTES % (AUTO) 23.6 % (21.0-51.0); MEAN CORPUSCULAR HEMOGLOBIN 28.4 pg (27.0-33.0); MEAN CORPUSCULAR HGB CONC 32.3 g/dL (32.0-36.0); MONOCYTES # (AUTO) 0.5 K/uL (0.1-1.0); MONOCYTES % (AUTO) 8.2 % (3.0-13.0); PLATELET COUNT (AUTO) 250 K/uL (130-400); RED BLOOD CELL COUNT(AUTO) 4.08 MIL/uL (4.00-5.50); RED CELL DISTRIBUTION WIDTH 12.5 % (11.0-15.5); WHITE BLOOD COUNT (AUTO) 6.4 K/uL (4.8-10.8)
[2023-12-23 23:31] LABS: CREATININE 0.7 mg/dL (0.5-1.0); POTASSIUM 3.9 mmol/L (3.5-5.1)
[2023-12-23 23:36] LABS: INR 0.98 (0.85-1.15); PROTHROMBIN TIME 10.6 SEC (9.6-11.6)
[2023-12-23 23:37] LABS: PARTIAL THROMBOPLASTIN TIME 29.1 SEC (26.3-35.5)
[2023-12-24] MEDS: ondanSETRON 4MG INJ IVP ONE ×2 (00:18)
[2023-12-24] MEDS: hydroMORPHone 1 MG INJ IVP ONE (00:28)
[2023-12-24] MEDS ORDERED: ondanSETRON 4MG INJ IVP ONE (00:30)
[2023-12-24 01:38] VITALS: BP 130/75; PULSE 86; RESP 18; TEMP 98.8; O2SAT 97
[2023-12-24] MEDS ORDERED: SERT-440 PO (23:06)
== END 2023-12-24 01:40 | disposition home or self-care (01) ==
LOC: EDH 22:48
DX: K91.840 Postprocedural hemorrhage of a digestive system organ or structure following a digestive system procedure (principal); K62.5 Hemorrhage of anus and rectum; E66.01 Morbid (severe) obesity due to excess calories; Z88.1 Allergy status to other antibiotic agents; Z90.49 Acquired absence of other specified parts of digestive tract; Z98.84 Bariatric surgery status; Z68.42 Body mass index [BMI] 45.0-49.9, adult
CPT/HCPCS: 99284; 82270; 80048; 83690; 85025; 85610; 85730; 86850; 86900; 86901; 36415; 96374; 96375; J1171; J2405

== ENCOUNTER 2024-01-09 13:05 | Emergency (ER) | payer BC ==
[~2024-01-09] VITALS: Ht 165.1 cm; Wt 120.7 kg
--- NOTE | 2024-01-09 13:48 | ERN ---
ED Note History of Present Illness Stated Complaint: ABD PAIN RUQ Chief Complaint: Post-Op Problem Time Seen by MD: 13:26 Dictation: This 38-year-old female status post gastric bypass by Dr. Hodges on December 21, 2023 presents with acute onset of right flank pain radiating into the right lower quadrant this morning while sleeping. The pain got very very severe and she vomited twice but right now it has eased up and she describes it as 6/10. She has never had pain like this before. She is constipated since her bypass but denies associated fever, diarrhea, dysuria, change in menses or history of kidney stones. She is on her menses at the present time and did not notice hematuria. She took two Tylenol at home with the improvement. Other medical problems include morbid obesity and sleep apnea as well as history of a pulmonary embolus. She has had a cholecystectomy. The patient was seen in the emergency department on December 23 and for postoperative complaints but states that this is a new problem. She is here with family. She does not smoke drink use recreational drugs Allergies: Coded Allergies: cefixime (Unverified Allergy, Unknown, 02/28/17) peanut (Unverified Allergy, Unknown, 02/28/17) Home Meds Reported Medications Sertraline HCl (Sertraline HCl) 100 Mg Tablet, 100 MG PO AM, TAB 12/24/23 Past Medical History Past Medical History: Other Additional Past Medical Hx: HX OF SLEEP APNEA, PULMONARY EMBOLISM Surgical History: Cholecystectomy, Other Surgical History Other: GASTRIC BYPASS Family History: Negative Social History: Negative, Lives with family RN Note Reviewed/Agreed w/PFSH: Yes Review of System Dictation All pertinent systems reviewed, negative except as documented in the HPI The ROS is obtained from patient GENERAL/CONSTITUTIONAL: Negative except as documented in HPI. ENT: Negative except as documented in HPI. CARDIOVASCULAR: Negative except as documented in HPI. RESPIRATORY: Negative except as documented in HPI. GASTROINTESTINAL: Negative except as documented in HPI. GENITOURINARY: Negative except as documented in HPI. MUSCULOSKELETAL: Negative except as documented in HPI. SKIN: Negative except as documented in HPI. NEUROLOGIC: Negative except as documented in HPI. Initial Vital Sign VS Vital Signs Date Time Temp Pulse Resp B/P (MAP) Pulse Ox O2 Delivery O2 Flow Rate FiO2 01/09/24 13:21 97.9 82 16 113/73 100 Room Air 0 Physical Exam Dictation VITAL SIGNS: note is made of triage vital signs CONSTITUTIONAL: This is an uncomfortable appearing, obese patient who is awake, alert, and appropriately interactive. HEAD: Normocephalic, Atraumatic. EYES: Periorbital areas with no swelling, redness, or edema. Lids and lashes are normal. Conjunctival injection is absent. Sclera anicteric. Pupils equal, round, reactive to light. ENT: No nasal discharge noted. Posterior pharynx is without exudate, redness, swelling, masses, or evidence of obstruction. Uvula midline. Mucous membranes moist. NECK: Trachea midline, no masses palpated, and no cervical lymphadenopathy. No swelling. Supple, full range of motion without nuchal rigidity. No vertebral point tenderness. No meningismus. CHEST/AXILLA: Normal chest wall appearance and motion. No tenderness. No crepitus. CV: Normal rate, regular rhythm. No murmur. No edema. RESPIRATORY:Respiratory rate is normal. Bilateral equal breath sounds with good airflow. Normal breath sounds are noted. No rales, rhonchi or wheezes noted. No increased work of breathing, no retractions. ABDOMEN: Inspection normal. No distention is appreciated. Bowel sounds are normal. No mass or organomegaly is appreciated. There is very mild tenderness along the right side of the abdomen. No rebound. No rigidity. No voluntary or involuntary guarding. BACK: Inspection is normal. No midline tenderness is appreciated. The patient appears comfortable when moving. : Some right CVA tenderness is present. The bladder does not appear distended but exam is limited by body habitus SKIN: Warm, dry, with normal turgor. Capillary refill less than 3 seconds. Normal color.No rash. No cellulitis or abscess. No evidence of acute injury. MS/Extremity: There is no calf tenderness. Baseline range of motion is noted in all 4 extremities. There are no deformities. NEURO: Awake and alert, lucid. Facies symmetric and speech is clear. Motor strength 5/5 in all extremities. Sensory grossly intact. PSYCH: Patient is anxious but appropriately attentive and cooperative without evidence of hallucination. Results (Laboratory/Radiology) Laboratory/Radiology Laboratory Tests Test 01/09/24 13:54 01/09/24 13:55 White Blood Count 4.0 K/uL (4.8-10.8) L Red Blood Count 3.64 MIL/uL (4.00-5.50) L Hemoglobin 10.3 g/dL (12.0-16.0) L Hematocrit 32.2 % (36-48) L Mean Corpuscular Volume 88.5 fL (79-99) Mean Corpuscular Hemoglobin 28.3 pg (27.0-33.0) Mean Corpuscular Hemoglobin Concent 32.0 g/dL (32.0-36.0) Red Cell Distribution Width 13.7 % (11.0-15.5) Platelet Count 369 K/uL (130-400) Mean Platelet Volume 10.0 fL (7.5-10.5) Immature Granulocyte % (Auto) 0.2 % (0-1) Neutrophils (%) (Auto) 72.5 % (40.0-77.0) Lymphocytes (%) (Auto) 15.2 % (21.0-51.0) L Monocytes (%) (Auto) 9.2 % (3.0-13.0) Eosinophils (%) (Auto) 1.7 % (0.0-8.0) Basophils (%) (Auto) 1.2 % (0.0-5.0) Neutrophils # (Auto) 2.9 K/uL (1.8-7.7) Lymphocytes # (Auto) 0.6 K/uL (1.0-4.8) L Monocytes # (Auto) 0.4 K/uL (0.1-1.0) Eosinophils # (Auto) 0.07 K/uL (0.00-0.70) Basophils # (Auto) 0.05 K/uL (0.00-0.20) Absolute Immature Granulocyte (auto 0.01 K/uL (0-1) Nucleated Red Blood Cells 0.0 % (0.0-0.19) Sodium Level 138 mmol/L (136-145) Potassium Level 3.7 mmol/L (3.5-5.1) Chloride Level 101 mmol/L (101-111) Carbon Dioxide Level 26 mmol/L (21-32) Blood Urea Nitrogen 10 mg/dL (7-18) Creatinine 0.9 mg/dL (0.5-1.0) Glomerular Filtration Rate Calc 85 mL/min (>90) Random Glucose 102 mg/dL (70-105) Total Calcium 8.8 mg/dL (8.5-10.1) Total Bilirubin 0.5 mg/dL (0.2-1.0) Aspartate Amino Transf (AST/SGOT) 39 U/L (10-37) H Alanine Aminotransferase (ALT/SGPT) 60 U/L (12-78) Alkaline Phosphatase 61 U/L (50-136) Total Protein 6.5 g/dL (6.0-8.3) Albumin 3.4 g/dL (3.5-5.0) L Lipase 46 U/L (16-77) Human Chorionic Gonadotropin, Quant 0 mIU/mL (0-5) Urine Color YELLOW (YELLOW) Urine Appearance TURBID (CLEAR) Urine pH 6.0 (5.0-8.0) Urine Specific [place] 1.038 (1.001-1.031) Urine Protein 100 mg/dL (NEGATIVE) H Urine Glucose (UA) NEGATIVE mg/dL (NEGATIVE) Urine Ketones 150 mg/dL (NEGATIVE) H Urine Occult Blood LARGE (NEGATIVE) H Urine Nitrate NEGATIVE (NEGATIVE) Urine Bilirubin NEGATIVE mg/dL (NEGATIVE) Urine Urobilinogen 4.0 mg/dL (0.2-1.0) H Urine Leukocyte Esterase NEGATIVE Mai/uL Urine RBC 26-50 /HPF (0-1) H Urine WBC 0-1 /HPF (0-1) Urine WBC Clumps (Auto) FEW /HPF (0-1) Urine Squamous Epithelial Cells RARE /HPF (0-2) Urine Other Crystals (Auto) 221 /HPF (None Seen) Urine Bacteria RARE /HPF (None Seen) Urine Yeast MOD /HPF (None Seen) Labs Reviewed?: Yes CT Scan Comment: Institution : [facility] Accession No. : [id number] Patient : MARIAN LANIER Creator : Dictator : Communications Representative : Drawing Kiln Operator : RADHA MCDONALD Approver2 : Study : CT ABDOMEN/PELVIS W/O CONTRAST Study Date : 01/09/2024 14:56:26 Report Date : [facility] [address] [place] [address] IMAGING REPORT Signed PATIENT: YANNICK FONSECA MR#: [id number] : 1985 SEX: F AGE: 38 LOCATION: [facility] ORDER [id number] STATUS: REG ER REPORT#: [id number] SERVICE 45 REASON: R flank pain to RLQ ORDERING PHYSICIAN: JAIMEE LUCAS MD PROCEDURE: ABD PEL WO - CT ABDOMEN/PELVIS W/O CONTRAST CT ABDOMEN WITHOUT CONTRAST. CT PELVIS WITHOUT CONTRAST. INDICATION: Right flank and right lower abdominal pain TECHNIQUE: Routine transaxial imaging using 5 mm slice thickness through the abdomen and pelvis without the administration of IV contrast. Thin slice reconstructions are also provided. Coronal and sagittal reformatted images acquired for interpretation. CT was performed with one or more of the following dose reduction techniques: Automated exposure control, adjustment of the mA and/or kV according to patient size, or use of iterative reconstruction technique. COMPARISON: None FINDINGS: ON NONCONTRAST IMAGING: ABDOMEN: Heart size is normal. Visible lung bases are clear. Gastric bypass or other bariatric surgery changes. No abnormal renal calcifications, hydronephrosis, perinephric inflammation, or proximal hydroureter detected. The liver is normal in size and smooth in contour without biliary duct dilation. The spleen is normal in size and attenuation. The gallbladder appears normal. The pancreas appears normal without pancreatic duct dilation. The adrenal glands appear normal. No significant abdominal, retrocrural or retroperitoneal adenopathy noted. No evidence for intra-abdominal free air or organized fluid collection. No aortic aneurysmal dilation identified. PELVIS: No abnormal calcifications within the urinary bladder or distal ureters. No evidence for free air or organized pelvic fluid collection. No significant pelvic adenopathy detected. A few diverticula along the proximal distal colon. Terminal ileum appears unremarkable. The appendix appears normal. Visible osseous structures are intact. IMPRESSION: Mild diverticulosis coli without evidence for any acute intra-abdominal or pelvic process comment including no evidence for appendicitis or terminal ileitis. DICTATED BY: RADHA MCDONALD MD DATE: 01/09/24 1510 ELECTRONICALLY SIGNED BY: RADHA MCDONALD MD DATE: 01/09/24 1514 ED Course ED Course Orders Procedure Category Date Status Time Cbc With Differential LAB 01/09/24 Complete 13:46 Comprehensive LAB 01/09/24 Complete Metabolic Panel 13:46 Hcg,Quantitative LAB 01/09/24 Complete 13:46 Urinalysis Profile LAB 01/09/24 Complete 13:46 Ct Abdomen/Pelvis W/O CT 01/09/24 Resulted Contrast 13:46 Lipase LAB 01/09/24 Complete 13:46 Ketorolac PHA 01/09/24 Complete Tromethamine 30mg/Ml 14:30 Current Medications Medications (Trade) Dose Ordered Sig/Armen Route PRN Reason Start Time Stop Time Status Last Admin Dose Admin Ketorolac Tromethamine (toRADol) 30 mg ONCE ONCE IVP 01/09/24 14:30 01/09/24 14:31 DC 01/09/24 14:18 Vital Signs Date Time Temp Pulse Resp B/P (MAP) Pulse Ox O2 Delivery O2 Flow Rate FiO2 01/09/24 13:21 97.9 82 16 113/73 100 Room Air 0 Medical Decision Making MDM INITIAL IMPRESSION Initial history and physical concerning for possible ureterolithiasis due to d escription of the pain and exam Much lower index of suspicion for appendicitis Contributing medical problems: Morbid obesity limits the examination. Recent gastric bypass widens the differential diagnosis to complications post surgery I have reviewed the triage nursing notes and vital signs. The patient is afebrile with acceptable oxygen saturation, heart rate and blood pressure. Initial plan: Patient declined pain medication initially but will call me back if she has worsening pain. Plan is blood, urine and CT scan DATA REVIEW I have reviewed additional NN, repeat VS, and monitoring where indicated. Heart rate, blood pressure, and O2 saturation are acceptable. Carter diagnostic results: CBC is notable for mild anemia. White count is normal and there was no left shift. CMP and beta HCG are negative. Urinalysis shows dehydration and hematuria with crystals in the urine CT does not show any signs of a kidney stone. Other independent historian: none Review of external data: None. ED COURSE Interventions: Patient received IV Toradol and IV fluids Reassessment: Complete resolution of pain DISPOSITION Final diagnostic impression: Patient had acute severe right flank pain which has completely relieved. CT is negative and lab work is unremarkable except for dehydration and hematuria which could be related to her menses or a kidney stone I suspect she passed a small kidney stone.. She is now asymptomatic and comfortable going home I discussed my findings, clinical impression and treatment recommendations with the patient. I have reviewed the social factors contributing to the patient's presentation and disposition planning. My final plan for disposition was made based upon clinical findings, response to treatment and discussion with the patient regarding management options. Hospitalization is not indicated due to low risk of short term progression, complication, morbidity or mortality related to the current diagnosis At the time of discharge, the vital signs are within acceptable limits. Repeat examination: Asymptomatic Patient has been able to take oral liquids. The discharge treatment plan includes Tylenol for pain I discussed my findings and presumptive diagnosis with the patient and her spouse. Incidental findings discussed: none Questions were invited and answered in layman's terms. I have emphasized my follow-up recommendations and reviewed ED return precautions. I have answered any questions in layman's terms. The patient understands that they will have to arrange for out-patient follow-up for recheck of today's condition. The patient is stable and appropriate for discharge from the ED. This dictation was prepared using CSS99 voice recognition software. Occasional voice recognition errors may occur. When identified, these errors have been corrected. While every attempt is made to correct errors during dictation, errors may still exist. DX & DISP Disposition: Discharge Decision to Admit Date: Jan 09, 2024 Decision to Admit Time: 17:31 Departure Impression: Primary Impression: Right flank pain Additional Impression: Morbid obesity Condition: Stable Additional Instructions: Use Tylenol extra-strength 1-2 pills every 6-8 hours as needed for pain. Return to the emergency department for recurrent pain, vomiting, or other worsening. Follow up with your primary care physician Thursday or Thursday Referrals: SAUNDRA ABAD (PCP) Time of Disposition: 17:31 JAIMEE LUCAS MD Jan 09, 2024 13:48
--- NOTE | 2024-01-09 13:51 | NUR ---
PENDING TEST RESULTS FOR CT EXAM.
[2024-01-09 14:00] LABS: BASOPHILS # (AUTO) 0.05 K/uL (0.00-0.20); BASOPHILS % (AUTO) 1.2 % (0.0-5.0); EOSINOPHILS # (AUTO) 0.07 K/uL (0.00-0.70); EOSINOPHILS % (AUTO) 1.7 % (0.0-8.0); HEMATOCRIT 32.2 % (36-48); IMMATURE GRANULOCYTE ABSOLUTE 0.01 K/uL (0-1); LYMPHOCYTES # (AUTO) 0.6 K/uL (1.0-4.8); LYMPHOCYTES % (AUTO) 15.2 % (21.0-51.0); MEAN CORPUSCULAR HEMOGLOBIN 28.3 pg (27.0-33.0); MEAN CORPUSCULAR VOLUME 88.5 fL (79-99); MONOCYTES # (AUTO) 0.4 K/uL (0.1-1.0); MONOCYTES % (AUTO) 9.2 % (3.0-13.0); NEUTROPHILS # (AUTO) 2.9 K/uL (1.8-7.7); NEUTROPHILS % (AUTO) 72.5 % (40.0-77.0); PLATELET COUNT (AUTO) 369 K/uL (130-400); RED BLOOD CELL COUNT(AUTO) 3.64 MIL/uL (4.00-5.50); RED CELL DISTRIBUTION WIDTH 13.7 % (11.0-15.5)
[2024-01-09 14:11] LABS: CREATININE 0.9 mg/dL (0.5-1.0); POTASSIUM 3.7 mmol/L (3.5-5.1)
[2024-01-09] MEDS: ketOROlac 30MG VIAL (30MG/ML) IVP ONE (14:18)
[2024-01-09 14:30] LABS: ALBUMIN 3.4 g/dL (3.5-5.0); BILIRUBIN,TOTAL 0.5 mg/dL (0.2-1.0); TOTAL PROTEIN, SERUM 6.5 g/dL (6.0-8.3)
--- NOTE | 2024-01-09 15:14 | HMCIMG ---
CT ABDOMEN WITHOUT CONTRAST. CT PELVIS WITHOUT CONTRAST. INDICATION: Right flank and right lower abdominal pain TECHNIQUE: Routine transaxial imaging using 5 mm slice thickness through the abdomen and pelvis without the administration of IV contrast. Thin slice reconstructions are also provided. Coronal and sagittal reformatted images acquired for interpretation. CT was performed with one or more of the following dose reduction techniques: Automated exposure control, adjustment of the mA and/or kV according to patient size, or use of iterative reconstruction technique. COMPARISON: None FINDINGS: ON NONCONTRAST IMAGING: ABDOMEN: Heart size is normal. Visible lung bases are clear. Gastric bypass or other bariatric surgery changes. No abnormal renal calcifications, hydronephrosis, perinephric inflammation, or proximal hydroureter detected. The liver is normal in size and smooth in contour without biliary duct dilation. The spleen is normal in size and attenuation. The gallbladder appears normal. The pancreas appears normal without pancreatic duct dilation. The adrenal glands appear normal. No significant abdominal, retrocrural or retroperitoneal adenopathy noted. No evidence for intra-abdominal free air or organized fluid collection. No aortic aneurysmal dilation identified. PELVIS: No abnormal calcifications within the urinary bladder or distal ureters. No evidence for free air or organized pelvic fluid collection. No significant pelvic adenopathy detected. A few diverticula along the proximal distal colon. Terminal ileum appears unremarkable. The appendix appears normal. Visible osseous structures are intact. IMPRESSION: Mild diverticulosis coli without evidence for any acute intra-abdominal or pelvic process comment including no evidence for appendicitis or terminal ileitis.
[2024-01-09 16:14] LABS: APPEARANCE,URINE TURBID (CLEAR); BILIRUBIN,URINE NEGATIVE (NEGATIVE); COLOR,URINE YELLOW (YELLOW); GLUCOSE, URINE (UA) NEGATIVE (NEGATIVE); KETONES,URINE 150 mg/dL (NEGATIVE); LEUKOCYTE ESTERASE ,URINE NEGATIVE Leu/uL (NEGATIVE); NITRATE,URINE NEGATIVE (NEGATIVE); OCCULT BLOOD,URINE LARGE (NEGATIVE); PROTEIN,URINE 100 mg/dL (NEGATIVE)
[2024-01-09 16:25] LABS: ADD UA MICROSCOPIC YES
[2024-01-09 16:26] LABS: BACTERIA,URINE RARE /HPF (None Seen); MUCUS,URINE RARE LPF (None Seen); RBC,URINE 26-50 /HPF (0-1); SQUAMOUS EPITHELIAL CELL,UR RARE /HPF (0-2); UNCLASSIFIED CRYSTAL 221 /HPF (None Seen); WBC CLUMP FEW /HPF (0-1); WBC,URINE 0-1 /HPF (0-1); YEAST,URINE BUDDING MOD /HPF (None Seen)
[2024-01-09 18:23] VITALS: BP 118/65; PULSE 75; RESP 18; TEMP 98.2; O2SAT 99
== END 2024-01-09 18:29 | disposition home or self-care (01) ==
LOC: EDH 13:05
DX: R10.11 Right upper quadrant pain (principal); E66.01 Morbid (severe) obesity due to excess calories; R10.2 Pelvic and perineal pain; Z86.711 Personal history of pulmonary embolism; Z88.1 Allergy status to other antibiotic agents; Z90.49 Acquired absence of other specified parts of digestive tract; Z98.84 Bariatric surgery status; Z68.41 Body mass index [BMI] 40.0-44.9, adult
CPT/HCPCS: 99284; 74176; 96374; 80053; 84702; 83690; 85025; 81001; 36415; J1885

== ENCOUNTER 2024-11-16 02:19 | Emergency (ER) | payer BC ==
[~2024-11-16] VITALS: Ht 165.1 cm; Wt 83.0 kg
--- NOTE | 2024-11-16 02:54 | ERN ---
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 She stated that all day yesterday she had sore throat body aches and chills in the has been gave her Robitussin [id number] twice. She also received another dose prior to going to bed. When she suddenly awoke and saw the facial asymmetry she thought she had facial palsy as her mother had similar presentation and she came into the ER for further evaluation. She complained of pain in front of her left ear and left side of the face. No trauma she does not recall opening her mouth wide. She never had similar episode in the past. She had gastric bypass surgery about a year ago and lost more than 130 lb. Temperature 97 pulse 62 respirations 20 blood pressure 121/82 with a pulse ox imetry of 100% on room air Her chronic medical problems include history of morbid obesity status post gastric bypass surgery by Dr. Hodges-2023, history of obstructive sleep apnea syndrome, history of a pulmonary embolus Allergies: Coded Allergies: cefixime (Unverified Allergy, Unknown, 02/28/17) peanut (Unverified Allergy, Unknown, 02/28/17) Home Meds Active Scripts Sulfamethoxazole/Trimethoprim (Bactrim Ds Tablet) 800 Mg-160 Mg Tablet, 1 TAB PO BID for 7 Days, #14 TAB 0 Refills Prov:OLIVIA TOBIN MD 11/16/24 Oseltamivir Phosphate (Tamiflu) 75 Mg Cap, 75 MG PO BID for 5 Days, #10 CAP 0 Refills Prov:OLIVIA TOBIN MD 11/16/24 Reported Medications Sertraline HCl (Sertraline HCl) 100 Mg Tablet, 100 MG PO AM, TAB 12/24/23 Past Medical History Past Medical History: No Pertinent History Additional Past Medical Hx: HX OF SLEEP APNEA, PULMONARY EMBOLISM Surgical History: Cholecystectomy, Bariatric Surgery Surgical History Other: GASTRIC BYPASS Family History: Negative Social History: Negative, Lives with family RN Note Reviewed/Agreed w/PFSH: Yes Review of System Dictation Constitutional: Negative for fever,chills, and weight loss Eyes: Negative for injury, pain,redness, and discharge ENT: Negative for injury,pain or swelling Cardiovascular: Negative for chest pain, palpitations, and edema Respiratory: Negative for shortness of breath, cough, and wheezing, Abdomen/GI: Negative for abdominal pain, nausea, vomiting, diarrhea, and constipation Back: Negative for injury and pain : Negative for injury, bleeding and discharge MS/Extremity: Negative for injury and deformity Skin: Negative for rash, and discoloration Neuro: Negative for headache, weakness, numbness, tingling, and seizure Psych: Negative for suicide ideation, homicidal ideation, and hallucinations Initial Vital Sign VS Vital Signs Date Time Temp Pulse Resp B/P (MAP) Pulse Ox O2 Delivery O2 Flow Rate FiO2 11/16/24 02:21 97.0 62 20 121/82 100 Room Air 11/16/24 06:19 0 21 Physical Exam Dictation General: awake, alert, NAD Head/Face: Normocephalic, atraumatic Eyes: PERRL, EOMI, vision at baseline ENT: oral cavity clear, TMs clear, no signs of infection lower jaw is angled towards the right Neck: Trachea midline, supple, no nuchal rigidity Cardiovascular: RRR, normal S1/S2, No MRGs, no JVD Respiratory: CTAB, no respiratory distress, No rales or wheezes Abdomen: Soft, non-tender, non-distended, normal bowel sounds, no guarding or r ebound. Skin: Warm, dry, normal turgor, no rash MS/Extremity: Pulses equal, no cyanosis, neurovascular intact, FROM Neuro: COAx4, GCS 15, strength 5/5, CN 2-12 intact, normal cerebellar exam, normal gait, Psych: Normal behavior, mood, and affect normal Extremities-trace edema without any palpable cords, Homans sign is negative Results (Laboratory/Radiology) Laboratory/Radiology Laboratory Tests Test 11/16/24 02:45 11/16/24 02:47 11/16/24 02:50 White Blood Count 5.6 K/uL (4.8-10.8) Red Blood Count 3.83 MIL/uL (4.00-5.50) L Hemoglobin 10.5 g/dL (12.0-16.0) L Hematocrit 32.5 % (36-48) L Mean Corpuscular Volume 84.9 fL (79-99) Mean Corpuscular Hemoglobin 27.4 pg (27.0-33.0) Mean Corpuscular Hemoglobin Concent 32.3 g/dL (32.0-36.0) Red Cell Distribution Width 14.9 % (11.0-15.5) Platelet Count 260 K/uL (130-400) Mean Platelet Volume 10.2 fL (7.5-10.5) Immature Granulocyte % (Auto) 0.4 % (0-1) Neutrophils (%) (Auto) 50.2 % (40.0-77.0) Lymphocytes (%) (Auto) 35.9 % (21.0-51.0) Monocytes (%) (Auto) 6.2 % (3.0-13.0) Eosinophils (%) (Auto) 6.4 % (0.0-8.0) Basophils (%) (Auto) 0.9 % (0.0-5.0) Neutrophils # (Auto) 2.8 K/uL (1.8-7.7) Lymphocytes # (Auto) 2.0 K/uL (1.0-4.8) Monocytes # (Auto) 0.4 K/uL (0.1-1.0) Eosinophils # (Auto) 0.36 K/uL (0.00-0.70) Basophils # (Auto) 0.05 K/uL (0.00-0.20) Absolute Immature Granulocyte (auto 0.02 K/uL (0-1) Nucleated Red Blood Cells 0.0 % (0.0-0.19) Sodium Level 143 mmol/L (136-145) Potassium Level 4.5 mmol/L (3.5-5.1) Chloride Level 109 mmol/L (101-111) Carbon Dioxide Level 26 mmol/L (21-32) Blood Urea Nitrogen 13 mg/dL (7-18) Creatinine 0.7 mg/dL (0.5-1.0) Glomerular Filtration Rate Calc 114 mL/min (>90) Random Glucose 76 mg/dL (70-105) Total Calcium 8.5 mg/dL (8.5-10.1) Influenza Type A Antigen Negative For Type A Influenza Type B Antigen Positive For Type B SARS-CoV-2 Antigen (Rapid) PRESUMPTIVE NEGATIVE Group A Streptococcus Rapid negative (NEGATIVE) Urine Color YELLOW (YELLOW) Urine Appearance CLEAR (CLEAR) Urine pH 6.0 (5.0-8.0) Urine Specific [place] 1.039 (1.001-1.031) Urine Protein 20 mg/dL (NEGATIVE) H Urine Glucose (UA) NEGATIVE mg/dL (NEGATIVE) Urine Ketones 10 mg/dL (NEGATIVE) H Urine Occult Blood NEGATIVE (NEGATIVE) Urine Nitrate NEGATIVE (NEGATIVE) Urine Bilirubin NEGATIVE mg/dL (NEGATIVE) Urine Urobilinogen 3 mg/dL (0.2-1.0) H Urine Leukocyte Esterase 75 Mai/uL (NEGATIVE) H Urine RBC 0-1 /HPF (0-1) Urine WBC 2-5 /HPF (0-1) H Urine Squamous Epithelial Cells FEW /HPF (0-2) Urine Bacteria FEW /HPF (None Seen) Urine HCG, Qualitative NEGATIVE (NEGATIVE) Labs Reviewed?: Yes CT Scan Comment: REASON: s/p reduction of the left TMJ anterior dislocation ORDERING PHYSICIAN: OLIVIA TOBIN MD PROCEDURE: [facility] WO - CT MAXILLOFACIAL W/O CONTRAST EXAM: CT Maxillofacial Bones without IV Contrast. CLINICAL HISTORY: Questionable temporomandibular joint dislocation. Jaw asymmetry. TECHNIQUE: Thin collimated axial CT images of the maxillofacial bones were obtained, with sagittal and coronal reformatted images also submitted. A CT scan is done according to ALARA (As Low As Reasonably Achievable). CONTRAST: None. COMPARISON: Today's CT Maxillofacial Bones. FINDINGS: There is evidence of reduction of the anterior dislocation of the left temporomandibular joint to the normal position, as compared to the prior CT scan. The bilateral temporomandibular joints are normal in alignment in the present study. No acute fracture. Elongated bilateral styloid processes are identified. Incidental torus mandibularis. Mild chronic mastoiditis bilaterally. Mild chronic maxillary sinusitis bilaterally with a 1 cm polyp versus a mucosal retention cyst within the left maxillary sinus. The remaining paranasal sinuses are clear. The bilateral orbits and orbital contents are within normal limits. Nasal cavities and nasopharynx are unremarkable. The imaged portions of the intracranial substances are grossly unremarkable. IMPRESSION: There is evidence of reduction of the anterior dislocation of the left temporomandibular joint to the normal position, as compared to the prior CT scan. The bilateral temporomandibular joints are normal in alignment in the present study. No acute fracture. Elongated bilateral styloid processes are identified. Mild chronic maxillary sinusitis bilaterally with a 1 cm polyp versus a mucosal retention cyst within the left maxillary sinus. /[place] DICTATED BY: SHIKHA LARA Jr., MD DATE: 11/16/24736 ELECTRONICALLY SIGNED BY: SHIKHA LARA Jr., MD DATE: 11/16/24736 REASON: ?TMJ dislocation jaw assymettry ORDERING PHYSICIAN: OLIVIA TOBIN MD PROCEDURE: [facility] WO - CT MAXILLOFACIAL W/O CONTRAST EXAM: CT Maxillofacial Bones without IV Contrast. CLINICAL HISTORY: Questionable temporomandibular joint dislocation. Jaw asymmetry. TECHNIQUE: Thin collimated axial CT images of the maxillofacial bones were obtained, with sagittal and coronal reformatted images also submitted. A CT scan is done according to ALARA (As Low As Reasonably Achievable). CONTRAST: None. COMPARISON: None provided. FINDINGS: Anterior dislocation of the left temporomandibular joint. The right temporomandibular joint is normal in alignment. No acute fracture. Incidental torus mandibularis. Mild chronic mastoiditis bilaterally. Mild chronic maxillary sinusitis bilaterally with a 1 cm polyp versus a mucosal retention cyst within the left maxillary sinus. The remaining paranasal sinuses are clear. The bilateral orbits and orbital contents are within normal limits. Nasal cavities and nasopharynx are unremarkable. The imaged portions of the intracranial substances are grossly unremarkable. IMPRESSION: Anterior dislocation of the left temporomandibular joint. The right temporomandibular joint is normal in alignment. No acute fracture. Mild chronic maxillary sinusitis bilaterally with a 1 cm polyp versus a mucosal retention cyst within the left maxillary sinus. /[place] DICTATED BY: SHIKHA LARA Jr., MD DATE: 11/16/2449 ELECTRONICALLY SIGNED BY: SHIKHA LARA Jr., MD DATE: 11/16/2449 ED Course ED Course Orders Procedure Category Date Status Time Ketorolac PHA 11/16/24 Complete Tromethamine 30mg/Ml 03:00 Ct Maxillofacial W/O CT 11/16/24 Resulted Contrast 02:34 Cbc With Differential LAB 11/16/24 Complete 02:35 Basic Metabolic Panel LAB 11/16/24 Complete 02:35 Urinalysis Profile LAB 11/16/24 Complete 02:35 Influenza Type A & B, LAB 11/16/24 Complete Rapid 02:35 Covid19 (Sars Antigen LAB 11/16/24 Complete Rapid) 02:35 Rapid (Group A Strep) LAB 11/16/24 Complete 02:35 ,Urine Test LAB 11/16/24 Complete 02:43 Culture Urine JAX 11/16/24 In Process 03:20 Ct Maxillofacial W/O CT 11/16/24 Resulted Contrast 05:18 Morphine 4mg Syg PHA 11/16/24 Complete (Morphine 4mg Syg) 06:00 Current Medications Medications (Trade) Dose Ordered Sig/[place] Route PRN Reason Start Time Stop Time Status Last Admin Dose Admin Ketorolac Tromethamine (toRADol) 30 mg ONCE ONCE IVP 11/16/24 03:00 11/16/24 03:01 DC 11/16/24 03:37 Morphine Sulfate (morPHINE 4MG SYG) 4 mg ONCE ONCE IVP 11/16/24 06:00 11/16/24 06:01 DC 11/16/24 05:47 Vital Signs Date Time Temp Pulse Resp B/P (MAP) Pulse Ox O2 Delivery O2 Flow Rate FiO2 11/16/24 06:19 98.6 59 17 119/60 100 Room Air* 0 21 11/16/24 02:21 97.0 62 20 121/82 100 Room Air Medical Decision Making MDM Differential diagnosis: Renee's palsy, parotitis, dislocation of the TMJ, TMJ arthritis, odontogenic infection This is a 39-year-old female who presented to the emergency room with complaints of left-sided facial pain and asymmetry of the lower jaw that just happened as she woke up from sleep. She stated that all day yesterday she had sore throat body aches and chills in the has been gave her Robitussin [id number] twice. She also received another dose prior to going to bed. When she suddenly awoke and saw the facial asymmetry she thought she had facial palsy as her mother had similar presentation and she came into the ER for further evaluation. She complained of pain in front of her left ear and left side of the face. No trauma she does not recall opening her mouth wide. She never had similar episode in the past. She had gastric bypass surgery about a year ago and lost more than 130 lb. Temperature 97 pulse 62 respirations 20 blood pressure 121/82 with a pulse oximetry of 100% on room air Her chronic medical problems include history of morbid obesity status post gastric bypass surgery by Dr. Hodges-2023, history of obstructive sleep apnea syndrome, history of a pulmonary embolus 3:44 a.m. labs reviewed CBC shows a white count of 5.6 hemoglobin 10.5 platelets 260. BNP 7 is with a normal limits. Urinalysis is unremarkable urine test is negative. Swabs for flu and COVID pending 3:50 a.m. patient tested positive for influenza B, 4:[address] scan of the maxillofacial region was done results pending 5:[address] results reviewed-left TMJ anterior dislocation noted. 5:15 a.m. plan for reduction of the left TMJ anterior dislocation. Risks benefits discussed with the patient 5:35 a.m. status post reduction of the left TMJ. Patient doing extremely well with a facial asymmetry and jaw asymmetry restored Repeat imaging study to confirm the reduction requested. 5:43 a.m. complained of some pain due to the procedure. Morphine 4 mg requested Rationale: Tests considered and ordered secondary to shared decision making include: Labs and CT scan of maxillofacial region Previous outside records reviewed: Old ER visits. Risk of complication and/or morbidity or mortality of patient management: None Medications-Per medication reconciliation Need for hospitalization: Patient does not meet criteria for hospitalization. Need for emergency major/minor surgery: No There are no social concerns with this patient. Prescription drug management-Tamiflu at the time of discharge Prescriptions will include symptomatic care Patient's prior external medical records from other ER visits were reviewed by me as indicated. Prior testing and results from previous visits were reviewed. Prior tests were taken into account with medical decision making and resource utilization, independent historian/historians were used to obtain complete medical history. I independently interpreted the test that were performed, results were reviewed by me and considered findings on radiology if ordered. Medical management and examination interpretation discussions were had by me with other qualified healthcare professionals as indicated for the patient's care. Procedure Conscious Sedation: No Reduction Attempts: 2 Pre-Procedure NV Exam: Yes Post-Procedure NV Exam: Yes post joint reduction film: joint reduced Progress TMJ reduction Procedure note Indication Reduction of the left anterior temporomandibular joint dislocation Performing physician- Olivia sifuentes assisted by RN- Premedication-Toradol 30 mg IV x1 Informed consent-risks benefits alternatives outcomes and procedure was discussed in detail with the patient all questions answered. Procedure-after obtaining a verbal consent from the patient, after appropriate time-out and pause the procedure was performed. Patient was positioned to sit on the stretcher and protective gear with labs and face mask were worn. The thumbs were wrapped around gauze and were placed on the patient's lower molars curving the fingers under the lower jaw. Steady downward and backward pressure was applied slightly opening the patient's mouth. This pressure allowed the jaw to disengage from the anterior position. Pressure was continued until the jaws condyles slid back into the mandibular fos sa. Patient's upper and lower jaws were aligned immediately and she was able to appreciate that her pain had resolved completely. Post reduction imaging study was requested which is pending at this time No immediate complications were noted. Patient tolerated the procedure extremely well and was alert throughout the procedure. Recommendations-patient instructed to eat soft diet for about a week, avoid extreme of opening of the mouth Follow up with an ENT specialist or oral maxillary facial surgeon. Problem List Problem List: (1) TMJ (dislocation of temporomandibular joint) (2) Influenza B (3) Morbid obesity (4) Chronic maxillary sinusitis DX & DISP Disposition: Discharge Departure Impression: Primary Impression: TMJ (dislocation of temporomandibular joint) Additional Impressions: Influenza B, Morbid obesity, Chronic maxillary sinusitis Condition: Stable Scripts Sulfamethoxazole/Trimethoprim (Bactrim Ds Tablet) 800 Mg-160 Mg Tablet 1 TAB PO BID for 7 Days, #14 TAB 0 Refills Prov: OLIVIA TOBIN MD 11/16/24 Oseltamivir Phosphate (Tamiflu) 75 Mg Cap 75 MG PO BID for 5 Days, #10 CAP 0 Refills Prov: OLIVIA TOBIN MD 11/16/24 Additional Instructions: Patient and the caregiver have been informed of all the diagnostic tests and the imaging conducted during the today's visit to the emergency room and has verbalized understanding of the results I have personally reviewed and interpreted all diagnostic exams performed here in the ER today as well as the vital signs documented by the nursing staff. The patient is now being discharged to home and should follow up with the primary care physician or the specialist as directed by the ER staff. Diet-patient instructed to eat only soft foods for the next 1 week. Avoid any activities involving large opening of the mouth. Follow up with the ENT specialist Referrals: SAUNDRA ABAD (PCP) OLIVIA TOBIN MD Nov 16, 2024 02:54
[2024-11-16 03:02] LABS: IMMATURE GRANULOCYTE ABSOLUTE 0.02 K/uL (0-1); NUCLEATED RED BLOOD CELLS 0.0 % (0.0-0.19); PLATELET COUNT (AUTO) 260 K/uL (130-400); RED BLOOD CELL COUNT(AUTO) 3.83 MIL/uL (4.00-5.50); RED CELL DISTRIBUTION WIDTH 14.9 % (11.0-15.5); WHITE BLOOD COUNT (AUTO) 5.6 K/uL (4.8-10.8)
[2024-11-16 03:09] LABS: CREATININE 0.7 mg/dL (0.5-1.0); GLOMERULAR FILTR. RATE CALC 114.0 mL/min (>90); GLUCOSE,RANDOM 76.0 mg/dL (70-105); SODIUM SERUM 143.0 mmol/L (136-145); UREA NITROGEN, BLOOD 13.0 mg/dL (7-18)
[2024-11-16 03:12] LABS: RAPID GROUP A STREP negative (NEGATIVE)
[2024-11-16 03:15] LABS: APPEARANCE,URINE CLEAR (CLEAR); GLUCOSE, URINE (UA) NEGATIVE (NEGATIVE); LEUKOCYTE ESTERASE ,URINE 75 Leu/uL (NEGATIVE); NITRATE,URINE NEGATIVE (NEGATIVE); OCCULT BLOOD,URINE NEGATIVE (NEGATIVE)
[2024-11-16 03:20] LABS: ADD UA MICROSCOPIC YES
[2024-11-16 03:21] LABS: SQUAMOUS EPITHELIAL CELL,UR FEW /HPF (0-2)
[2024-11-16 03:22] LABS: COVID19 (SARS ANTIGEN RAPID) PRESUMPTIVE NEGATIVE (NEGATIVE); INFLUENZA TYPE A Negative For Type A (NEGATIVE)
--- NOTE | 2024-11-16 03:28 | NUR ---
PATIENT AT CT SCAN AT THIS TIME.
[2024-11-16 03:37] LABS: INFLUENZA TYPE B Positive For Type B (NEGATIVE)
--- NOTE | 2024-11-16 04:50 | HMCIMG ---
EXAM: CT Maxillofacial Bones without IV Contrast. CLINICAL HISTORY: Questionable temporomandibular joint dislocation. Jaw asymmetry. TECHNIQUE: Thin collimated axial CT images of the maxillofacial bones were obtained, with sagittal and coronal reformatted images also submitted. A CT scan is done according to ALARA (As Low As Reasonably Achievable). CONTRAST: None. COMPARISON: None provided. FINDINGS: Anterior dislocation of the left temporomandibular joint. The right temporomandibular joint is normal in alignment. No acute fracture. Incidental torus mandibularis. Mild chronic mastoiditis bilaterally. Mild chronic maxillary sinusitis bilaterally with a 1 cm polyp versus a mucosal retention cyst within the left maxillary sinus. The remaining paranasal sinuses are clear. The bilateral orbits and orbital contents are within normal limits. Nasal cavities and nasopharynx are unremarkable. The imaged portions of the intracranial substances are grossly unremarkable. IMPRESSION: Anterior dislocation of the left temporomandibular joint. The right temporomandibular joint is normal in alignment. No acute fracture. Mild chronic maxillary sinusitis bilaterally with a 1 cm polyp versus a mucosal retention cyst within the left maxillary sinus. /[place]
[2024-11-16] MEDS ORDERED: OSEL75 PO (05:30)
[2024-11-16 06:19] VITALS: BP 119/60; PULSE 59; RESP 17; TEMP 98.6; O2SAT 100
--- NOTE | 2024-11-16 06:38 | HMCIMG ---
EXAM: CT Maxillofacial Bones without IV Contrast. CLINICAL HISTORY: Questionable temporomandibular joint dislocation. Jaw asymmetry. TECHNIQUE: Thin collimated axial CT images of the maxillofacial bones were obtained, with sagittal and coronal reformatted images also submitted. A CT scan is done according to ALARA (As Low As Reasonably Achievable). CONTRAST: None. COMPARISON: Today's CT Maxillofacial Bones. FINDINGS: There is evidence of reduction of the anterior dislocation of the left temporomandibular joint to the normal position, as compared to the prior CT scan. The bilateral temporomandibular joints are normal in alignment in the present study. No acute fracture. Elongated bilateral styloid processes are identified. Incidental torus mandibularis. Mild chronic mastoiditis bilaterally. Mild chronic maxillary sinusitis bilaterally with a 1 cm polyp versus a mucosal retention cyst within the left maxillary sinus. The remaining paranasal sinuses are clear. The bilateral orbits and orbital contents are within normal limits. Nasal cavities and nasopharynx are unremarkable. The imaged portions of the intracranial substances are grossly unremarkable. IMPRESSION: There is evidence of reduction of the anterior dislocation of the left temporomandibular joint to the normal position, as compared to the prior CT scan. The bilateral temporomandibular joints are normal in alignment in the present study. No acute fracture. Elongated bilateral styloid processes are identified. Mild chronic maxillary sinusitis bilaterally with a 1 cm polyp versus a mucosal retention cyst within the left maxillary sinus. /[place]
[2024-11-16] MEDS ORDERED: SULF1TAB42 PO (06:40)
== END 2024-11-16 06:51 | disposition home or self-care (01) ==
LOC: EDH 02:19
DX: S03.02XA Dislocation of jaw, left side, initial encounter (principal); J10.1 Influenza due to other identified influenza virus with other respiratory manifestations; J32.0 Chronic maxillary sinusitis; E66.01 Morbid (severe) obesity due to excess calories; H92.02 Otalgia, left ear; Z98.84 Bariatric surgery status; Z86.711 Personal history of pulmonary embolism; Z88.1 Allergy status to other antibiotic agents; Z91.010 Allergy to peanuts; Z90.49 Acquired absence of other specified parts of digestive tract; Z20.822 Contact with and (suspected) exposure to COVID-19; X58.XXXA Exposure to other specified factors, initial encounter; Y93.84 Activity, sleeping; Y92.098 Other place in other non-institutional residence as the place of occurrence of the external cause; Y99.8 Other external cause status
CPT/HCPCS: 21480; 36415; 70486; 80048; 81001; 81025; 85025; 87086; 87426; 87804; 87880; 96374; 96375; 99285; J1885; J2270